=== PATIENT | female | born 2000 | race Caucasian/White ===

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

== ENCOUNTER 2022-04-22 16:26 | Emergency (ER) | payer OTHER ==
--- OUTSIDE RECORDS SUMMARY | 2022-04-22 16:35 | XMS REPORT | Continuity of Care Document ---
:2000 Author Organization [facility] [place] [facility] t Address [address] [place] [address] [address]. Le[address] [place] [address] Care Team Providers Name Role Phone STUART AMOR Primary Care Physician Unavailable TR EATON Attending Clinician Unavailable Angelito Tr FITZGERALD Attending Clinician [phone] INDUCTION, MARGOT Attending Clinician Unavailable Tanvir Wynne MD Attending Clinician Carol Sarmiento MD Attending Clinician [phone] Lyndon Jaramillo MD Attending Clinician STUART AMOR Attending Clinician Unavailable TANVIR WYNNE Attending Clinician Unavailable Doctor Unassigned, [place] Attending Clinician Unavailable Ultrasound, Dixon-Ghassan Attending Clinician Unavailable Deanne Guerrero MD Attending Clinician [phone] DEANNE GUERRERO Attending Clinician Unavailable LIZZIE RAMEY Attending Clinician Unavailable CLEO PRICE Attending Clinician Unavailable SANDRITA MEDINA Attending Clinician Unavailable Provider, Emre Doss Attending Clinician Unavailable Sandrita Ring Attending Clinician Visit, Emre Nurse Attending Clinician Unavailable Stuart Carrillo Attending Clinician LISANDRO BROOKS Attending Clinician Unavailable LISANDRO BROOKS Attending Clinician Unavailable Dwain HARPER, Lisandro Attending Clinician Marko Harrison DO Attending Clinician BRENDAN BERRY Attending Clinician Unavailable Brendan Berry MD Attending Clinician Nasim Medrano MD Attending Clinician NASIM MEDRANO Attending Clinician Unavailable NASIM MEDRANO Attending Clinician Unavailable Sergio Vivar MD Attending Clinician Tom [facility], [place] Attending Clinician Unavailable ABAD MATOS S Attending Clinician Unavailable Phil PEREA Abad S Attending Clinician Anika Alegria RN Attending Clinician Unavailable Dionicio, Dixon Enriquezchpeña m Attending Clinician Unavailable ADITI BARBOZA Attending Clinician Unavailable Melissa DIGGSP, Patience Padilla Attending Clinician [phone] Cleo Price CNM Attending Clinician Alice, [facility] Attending Clinician Unavailable Aditi Casillas Attending Clinician BELLA DELVALLE Attending Clinician Unavailable Bella Delvalle MD Attending Clinician Jonathan Vazquez MD Attending Clinician NICOLETTE OSORIO Attending Clinician Unavailable Nicolette Osorio MD Attending Clinician [phone] Chloe Power MD Attending Clinician CHLOE POWER Attending Clinician Unavailable Tammie Ervin RN Attending Clinician Unavailable LISANDRO BROOKS Admitting Clinician Unavailable NICOLETTE OSORIO Admitting Clinician Unavailable CHLOE POWER Admitting Clinician Unavailable Tanvir Wynne MD Admitting Clinician TANVIR WYNNE Admitting Clinician Unavailable Lisandro Brooks MD Admitting Clinician Jonathan Vazquez MD Admitting Clinician Nicolette Osorio MD Admitting Clinician [phone] Chloe Power MD Admitting Clinician Payers Payer Name Policy Type Policy Number Effective Date Expiration Date Vanessa boone [facility] [id number] 2019 CHOICE [place] STAR 00:00:00 Problems Condition Condition Condition Status Onset Resolution Last Treating Co mments Source Name Details Category Date Date Treatment Clinician Date Disease Active 2021-04 U nivers care and care and 2-16 ity of examin[place] examin[place] n of n of 00 Medical lactating lactating Bran ch mother mother 37 weeks 37 weeks Disease Active 2021-04 Unive rs gestation gestation 1-22 ity of of of 00:00: [place] 00 [facility] Normal Normal Disease Active 2021-04 Univers labor labor 1-22 ity of 00:00: [address] Full-term Full-term Disease Active 2021-04 Uni vers premature premature 1-22 it[place] of rupture of rupture of 00:[place] membranes membranes 00 [facility] with onset with onset Br anch of labor of labor within 24 within 24 hours of hours of rupture rupture Liveborn Liveborn Disease Active 2021-04 Unive rs , of infant, of 1-22 it y of [place] , , 00 [place]ical born in born in [facility] hospital by vaginal by vaginal delivery delivery Anemia of Anemia of Disease Active 2021-04 Uni vers mother in mother in 1-21 ity of , , 00:[place] antepartum antepartum 00 Me dical Branch 28 weeks 28 weeks Disease Active Unive rs gestation gestation 9-21 ity of of of 00:00: [place] [address] [facility] Subchorion Subchorion Disease Active U nivers ic ic 4-28 ity of hematoma hematoma 00:00: [place] in first in first 00 Medica l trimester, trimester, Br anch single or single or unspecifie unspecifie d fetus d fetus Vaginal Vaginal Disease Active Univers bleeding bleeding 4-18 ity of during during 00:00: [place] , , 00 Me dical antepartum antepartum Br anch History of History of Disease Active U nivers 4-12 ity of delivery delivery 00:00: [place] 00 Medical Branch History of History of Disease Active U nivers of of 4-12 ity of child child 00:00: [place] after after 00 Medical Branch period period Multiparit Multiparit Disease Active U nivers y y 4-12 ity of 00:00: [place] 00 Medical Branch Threatened Threatened Disease Active 2020-04 U nivers , , 1-08 ity of antepartum antepartum 00:00: [place] 00 [place] Rh Rh Disease Active 2020-04 Univers negative negative 1-08 ity of state in state in 00:00: [place] antepartum antepartum 00 Me dical period period Branch Breast Breast Disease Active Univers abscess abscess 6-24 ity of 00:00: [place] Medical Branch Nausea and Nausea and Disease Active U nivers vomiting vomiting 1-02 ity of during during 00:00: [place] [address] [facility] Primigravi Primigravi Disease Active 2018-04 U nivers da in da in 2-05 ity of third third 00:00: [place] trimester trimester 00 [facility] Maternal Maternal Disease Active 2018-04 Overview: Un slava varicella, varicella, 1-08 Formattin ity of non-immune non-immune 00:00: g of this [place] 00 note Medical might be Branch different from the original. Address in Postpartu m. High-risk High-risk Disease Active 2018-04 Uni vers 1-07 ity of in third in third 00:00: [place] trimester trimester 00 [facility] High risk High risk Disease Active 2018-04 Uni vers teen teen 1-07 ity of 00:[place] in first in first 00 Medica l trimester trimester Bran ch Allergies, Adverse Reactions, Alerts Allergy Allergy Status Severity Reaction(s) Onset Inactive Treating Comm ents Source Name Type Date Date Clinician HYDROXYP DRUG Active Low ITCHING 2021-04 Univers ROGESTER 0-13 ity of ONE 00:00: [place] CAP(PPRE 00 Medical S) Branch Hydroxyp Propensi Active Itching 2021-04 Reports Univ ers rogester ty to 0-13 itching ity of one adverse 00:00: and [place] Cap(Ppre reaction 00 discomfor Med ical s) s t at site Branch of injection . Occurs immediate ly after injection is ongoing for several days Codeine Propensi Active Nausea 2020-04 Univers ty to and/or 08 ity of adverse Vomiting 00:00: [place] reaction 00 Medical s Branch CODEINE DRUG Active N/V 2020-04 Univers INGREDI 1-08 ity of 00:00: [place] [facility] Social History Social Habit Start Date Stop Date Quantity Comments Source ASSERTION 2021-07-16 University of 00:00:00 [place] Medical [facility] History [facility] o f Alcohol Comment [place] Med ical Branch History [facility] o f Alcohol Std [place] Medical Drinks Branch History [facility] o f Alcohol Binge [place] Medic al Branch Exposure to 2022-04-01 2022-04-11 Not sure University SARS-CoV-2 00:00:00 14:22:00 [facility] (event) Branch Alcohol intake 2022-04-11 2022-04-11 Lifetime University of 00:00:00 00:00:00 non-drinker [facility] (finding) [place] Tobacco use and 2021-11-08 2021-11-08 Smokeless tobacco Un iversity of exposure 00:00:00 00:00:00 non-user [facility] History SDOH 2019-03-03 2019-03-03 1 University o f Alcohol Frequency 00:00:00 [facility] [place] Sex Assigned At [birth year] Universit y of 00:00:00 00:00:00 [facility] Smoking Status Start Date Stop Date Source Never smoked tobacco [facility] Medications Ordered Filled Start Stop Current Ordering Indication Dosage Frequency Signature Comments Components Source Medication Medication Date Date Medication? Clinician (SIG) Name Name jomar Wood 2021-04 Yes Topical, Un slava (TUCKS) 50 1-23 Q4HPRN, ity of % topical 01:12: [place] pad 11 on [facility] 03/18/22 Branch at 1912, Until Discontinu ed, Routine, rectal/hem orrhoidal pain ibuprofen 2021-04 Yes 600mg 600 mg, Univ ers (IBU) 1- Oral, ity of tablet 600 01:12: Q6HPRN, [place] mg 11 Starting Medical on [facility] Branch 03/18/22 at 1912, Until Discontinu ed, Routine, Pain (scale 4-6) acetaminoph 2022-1 Yes 650mg 650 mg, Un slava en 05-19 Oral, ity of (TYLENOL) 01:12: Q6HPRN, [place] tablet 650 11 Starting Medic al mg on Thu03/18/22 at 1911, Until Discontinu ed, Routine, Pain (scale 1-3) diphenhydrA 2021-04 Yes 25mg 25 mg, Univ ers MINE 05-19 Oral, ity of (BENADRYL) 01:12: Q6HPRN, [place] tablet 25 11 Starting Medica l mg on Thu03/18/22 at 1911, Until Discontinu ed, Routine, Sleep, Itching ondansetron 2021-04 Yes 4mg 4 mg, Slow Univers (ZOFRAN 05-19 IV Push, ity of (PF)) 01:12: Q8HPRN, [place] injection 4 11 Starting Medi roberto mg on 03/18/22 at 1911, Until Discontinu ed, Routine, Nausea and Vomiting (N/V) simethicone 2021-04 Yes 160mg 160 mg, [place] (GAS RELIEF 05-19 Oral, ity of (SIMETHICON 01:12: PC+HSPRN, [place] E)) 11 Starting Medical chewable on Thu tablet 160 03/18/22 mg at 1911, Until Discontinu ed, Routine, Gas docusate 2021-04 Yes 200mg 200 mg, Unive rs (COLACE) 05-19 Oral, ity of capsule 200 01:12: QDAILYPRN, [place] mg 11 Starting Medical on [facility] Branch 03/18/22 at 1911, Until Discontinu ed, Routine, Constipati on magnesium 2021-04 Yes 30mL 30 mL, Univer s hydroxide 05-19 Oral, ity of (MILK OF 01:12: QDAILYPRN, [place] MAGNESIA) 11 Starting Medica l 400 mg/5 mL on Thu suspension 03/18/22 30 mL at 1911, Until Discontinu ed, Routine, Constipati on benzocaine- 2021-04 Yes Topical, [place] menthol 05-19 PRN, ity of (DERMOPLAST 01:12: Starting [place] ) 20-0.5 % 11 on [facility] Medical topical 03/18/22 Branch spray at 1912, Until Discontinu ed, Routine, Perineum discomfort ondansetron 2021-04- No 4mg 4 mg, Slow Univers (ZOFRAN 05-18 IV Push, ity of (PF)) 19:35: 01:12 Q6HPRN, [place] injection 4 00 :15 Nausea and Me dical mg Vomiting Branch (N/V), Starting on Thu03/18/22 at 1335
Do ses of ondansetro n 16 mg and above need to be administer ed via IV piggyback. For Dose >=24mg ECG monitoring is advisable.
oxytocin 2021-04- No 2mU/min at 2-40 Un slava (PITOCIN) 05-18 11-23 mL/hr, IV ity of 30 units in 14:20: 01:12 Infusion, [place] NS 500 mL 28 :15 TITRATE, Medica l IV infusion Starting Bran ch on Thu03/18/22 at 0820, Until Thu03/18/22 at 1912, PERFECTO lactated 2021-04- No 500mL at 999 Unive rs ringers IV 05-18 11-22 mL/hr, 500 it y of infusion 14:15: 13:27 mL, IV [place] 500 mL 00 :00 Infusion, Medical ONCE, 1 Branch dose, On Thu03/18/22 at 0815, Routine fentaNYL-ro 2021-04- No Epidural, Univers pivacaine 2 05-18 ONCE INTRA i ty of mcg/mL-0.1 14:00: 01:59 PROCEDURE, [place] % (PF) in 00 :15 Starting Medica l NS 200 mL on Tue Branch epidural 03/18/22 infusion at 0800, RTU Until Thu03/18/22 at 1959, Routine, Intra-op fentaNYL-ro 2021-04- No Epidural, Univers pivacaine 2 05-18 ONCE INTRA i ty of mcg/mL-0.1 14:00: 01:59 PROCEDURE, [place] % (PF) in 00 :15 Starting Medica l NS 200 mL on Tue Branch epidural 03/18/22 infusion at 0800, RTU Until Thu03/18/22 at 1959, Routine, Intra-op lidocaine-e 2021-04- No Intraderma Univers pinephrine 05-18 11-23 l, ONCE ity o f (XYLOCAINE 13:55: 01:59 INTRA [place] W/EPINEPHRI 00 :15 PROCEDURE, Me dical NE) 1.5 Starting Branch %-1:200,000 on Tue injection 03/18/22 at 0755, Until Thu03/18/22 at 1959, Routine, Intra-op lidocaine-e 2021-04- No Intraderma Univers pinephrine 05-1823 l, ONCE ity o f (XYLOCAINE 13:55: 01:59 INTRA [place] W/EPINEPHRI 00 :15 PROCEDURE, Me dical NE) 1.5 Starting Branch %-1:200,000 on Tue injection 03/18/22 at 0755, Until Thu03/18/22 at 1959, Routine, Intra-op D5W-LR IV 2021-04- No 1000mL at 1-125 U nivers infusion 05-18 11-23 mL/hr, IV ity o f 1,000 mL 13:19: 01:12 Infusion, [place] as 18 :15 TITRATE, Medical Starting Branch on Thu03/18/22 at 0719, Until Thu03/18/22 at 1912, Routine 2021-04 Yes [id number] 1{tbl} Take 1 U nivers vitamin 1-22 tablet by ity of w/FA tablet 00:00: mouth in [place] 00 the Medical morning. Branch docusate 2021-04 Yes [id number] 200mg Take 2 Un slava 100 mg 1-22 capsules ity of capsule 00:00: by mouth [place] 00 once daily Medical as needed Branch for Constipati on. ferrous 2021-04 Yes [id number] 325mg Take 1 Uni vers sulfate 325 1-22 tablet by ity of mg (65 mg 00:00: [place] iron) 00 the Medical tablet morning Branch and 1 tablet in the evening. ibuprofen 2021-04 Yes [id number] 600mg Take 1 U nivers 600 mg 1-22 tablet by ity of tablet 00:00: mouth [place] 00 every 6 Medical (six) Branch hours as needed (Pain). Take with food or milk. 2021-04 Yes [id number] 1{tbl} Take 1 U nivers vitamin 1-22 tablet by ity of w/FA tablet 00:00: mouth in [place] 00 the Medical morning. Branch docusate 2021-04 Yes [id number] 200mg Take 2 Un slava 100 mg 1-22 capsules ity of capsule 00:00: by mouth [place] 00 once daily Medical as needed Branch for Constipati on. ferrous 2021-04 Yes [id number] 325mg Take 1 Uni vers sulfate 325 1-22 tablet by ity of mg (65 mg 00:00: [place] iron) 00 the Medical tablet morning Branch and 1 tablet in the evening. ibuprofen 2021-04 Yes [id number] 600mg Take 1 U nivers 600 mg 1-22 tablet by ity of tablet 00:00: mouth [place] 00 every 6 Medical (six) Branch hours as needed (Pain). Take with food or milk. ascorbic 2021-04 Yes [id number] 500mg Take 1 U nivers acid, 1-21 tablet by ity of vitamin C, 00:00: mouth in [place] 500 mg 00 the Medical tablet morning Branch and 1 tablet at noon and 1 tablet in the evening. ferrous 2021-04 Yes [id number] 325mg Take 1 Un sl[place] sulfate 325 1-21 tablet by ity of mg (65 mg 00:00: [place] iron) 00 the Medical tablet morning Branch and 1 tablet in the evening. ascorbic 2021-04 Yes [id number] 500mg Take 1 U nivers acid, 1-21 tablet by ity of vitamin C, 00:00: mouth in [place] 500 mg 00 the Medical tablet morning Branch and 1 tablet at noon and 1 tablet in the evening. ferrous 2021-04 Yes [id number] 325mg Take 1 [place] sulfate 325 1-21 tablet by ity of mg (65 mg 00:00: [place] iron) 00 the Medical tablet morning Branch and 1 tablet in the evening. ascorbic 2021-04 Yes [id number] 500mg Take 1 U nivers acid, 1-21 tablet by ity of vitamin C, 00:00: mouth in [place] 500 mg 00 the Medical tablet morning Branch and 1 tablet at noon and 1 tablet in the evening. ferrous 2021-04 Yes [id number] 325mg Take 1 Un sl[place] sulfate 325 1-21 tablet by ity of mg (65 mg 00:00: [place] iron) 00 the Medical tablet morning Branch and 1 tablet in the evening. ascorbic 2021-04 Yes [id number] 500mg Take 1 U nivers acid, 1-21 tablet by ity of vitamin C, 00:00: mouth in [place] 500 mg 00 the Medical tablet morning Branch and 1 tablet at noon and 1 tablet in the evening. ferrous 2021-04 Yes [id number] 325mg Take 1 [place] sulfate 325 1-21 tablet by ity of mg (65 mg 00:00: [place] iron) 00 the Medical tablet morning Branch and 1 tablet in the evening. ascorbic 2021-04 Yes [id number] 500mg Take 1 U nivers acid, 1-21 tablet by ity of vitamin C, 00:00: mouth in [place] 500 mg 00 the Medical tablet morning Branch and 1 tablet at noon and 1 tablet in the evening. ascorbic 2021-04 Yes [id number] 500mg Take 1 U nivers acid, 1-21 tablet by ity of vitamin C, 00:00: mouth in [place] 500 mg 00 the Medical tablet morning Branch and 1 tablet at noon and 1 tablet in the evening. ascorbic 2021-04 Yes [id number] 500mg Take 1 U nivers acid, 1-21 tablet by ity of vitamin C, 00:00: mouth in [place] 500 mg 00 the Medical tablet morning Branch and 1 tablet at noon and 1 tablet in the evening. ascorbic 2021-04 Yes [id number] 500mg Take 1 U nivers acid, 1-21 tablet by ity of vitamin C, 00:00: mouth in [place] 500 mg 00 the Medical tablet morning Branch and 1 tablet at noon and 1 tablet in the evening. ferrous 2021-04- No [id number] 325mg Take 1 U nivers sulfate 325 1-21 11-22 tablet by it y of mg (65 mg 00:00: 00:00 mouth in [place] iron) 00 :00 the Medical tablet morning Branch and 1 tablet in the evening. ferrous 2021-04- No [id number] 325mg Take 1 U nivers sulfate 325 1-21 11-22 tablet by it y of mg (65 mg 00:00: 00:00 mouth in [place] iron) 00 :00 the Medical tablet morning Branch and 1 tablet in the evening. ferrous 2021-04- No [id number] 325mg Take 1 U nivers sulfate 325 05-17 tablet by it y of mg (65 mg 00:00: 00:00 mouth in [place] iron) 00 :00 the Medical tablet morning Branch and 1 tablet in the evening. hydroxyprog 2021- No [id number] 275mg 275 mg, Univers esterone(PF 01-24 Subcutaneo i ty of ) (LO 14:26: 14:56 us, ONCE, [place] AUTO-INJECT 00 :00 1 dose, On Me dical OR) 275 Fri Branch mg/1.1 mL 01/24/22 at injection 0930, 275 mg Routine hydroxyprog 2021-2021- No [id number] 275mg Univers esterone(PF 01-24 ity of ) (LO 14:26: 14:27 [place] AUTO-INJECT 00 :00 Medical OR) 275 Branch mg/1.1 mL injection 275 mg hydroxyprog 2021- No [id number] 275mg 275 mg, Univers esterone(PF 01-24 Subcutaneo i ty of ) (LO 14:26: 14:27 [place], ONCE, [place] AUTO-INJECT 00 :00 1 dose, On Me dical OR) 275 Fri Branch mg/1.1 mL 01/24/22 at injection 0930, 275 mg Routine acetaminoph 2021- No 1000mg 1,000 mg, Univers en 01-15 Oral, ity of (TYLENOL) 22:49: 22:55 ONCE, 1 [place] tablet 00 :00 dose, On Medical 1,000 mg Wed Branch 01/15/22 at 1800, Routine Nitrofurant 2021- No [id number] 100mg Take 1 Univers oin&Nit. 01-15 capsule by ity of Macrocryst 00:00: 04:59 mouth in [place] 100 mg 00 :00 the Medical capsule morning Branch and 1 capsule in the evening. Do all this for 7 days. Nitrofurant 2021-0 2021- No [id number] 100mg Take 1 Univers oin&Nit. 01-15 capsule by ity of Macrocryst 00:00: 04:59 mouth in [place] 100 mg 00 :00 the Medical capsule morning Branch and 1 capsule in the evening. Do all this for 7 days. hydroxyprog 2022-0 Yes [id number] 275mg inject 1.1 Univers esterone,PF 8-08 mL under ity of , (LO, 00:00: the skin [place] PF,) 275 00 weekly. Medical mg/1.1 mL Branch injection hydroxyprog 2022-0 Yes [id number] 275mg inject 1.1 Univers esterone,PF 8-08 mL under ity of , (LO, 00:00: the skin [place] PF,) 275 00 weekly. Medical mg/1.1 mL Branch injection hydroxyprog 2022-0 Yes [id number] 275mg inject 1.1 Univers esterone,PF 8-08 mL under ity of , (LO, 00:00: the skin [place] PF,) 275 00 weekly. Medical mg/1.1 mL Branch injection hydroxyprog 2022-0 Yes [id number] 275mg inject 1.1 Univers esterone,PF 8-08 mL under ity of , (LO, 00:00: the skin [place] PF,) 275 00 weekly. Medical mg/1.1 mL Branch injection hydroxyprog 2022-0 Yes [id number] 275mg inject 1.1 Univers esterone,PF 8-08 mL under ity of , (LO, 00:00: the skin [place] PF,) 275 00 weekly. Medical mg/1.1 mL Branch injection hydroxyprog 2022-0 Yes [id number] 275mg inject 1.1 Univers esterone,PF 8-08 mL under ity of , (LO, 00:00: the skin [place] PF,) 275 00 weekly. Medical mg/1.1 mL Branch injection hydroxyprog 2022-0 Yes [id number] 275mg inject 1.1 Univers esterone,PF 8-08 mL under ity of , (LO, 00:00: the skin [place] PF,) 275 00 weekly. Medical mg/1.1 mL Branch injection hydroxyprog 2022-0 Yes [id number] 275mg inject 1.1 Univers esterone,PF 8-08 mL under ity of , (LO, 00:00: the skin [place] PF,) 275 00 weekly. Medical mg/1.1 mL Branch injection hydroxyprog 2022-0 Yes [id number] 275mg inject 1.1 Univers esterone,PF 8-08 mL under ity of , (OL, 00:00: the skin [place] PF,) 275 00 weekly. Medical mg/1.1 mL Branch injection hydroxyprog 2022-0 Yes [id number] 275mg inject 1.1 Univers esterone,PF 8-08 mL under ity of , (LO, 00:00: the skin [place] PF,) 275 00 weekly. Medical mg/1.1 mL Branch injection hydroxyprog 2022-0 Yes [id number] 275mg inject 1.1 Univers esterone,PF 8-08 mL under ity of , (LO, 00:00: the skin [place] PF,) 275 00 weekly. Medical mg/1.1 mL Branch injection hydroxyprog 2022-0 Yes [id number] 275mg inject 1.1 Univers esterone,PF 8-08 mL under ity of , (LO, 00:00: the skin [place] PF,) 275 00 weekly. Medical mg/1.1 mL Branch injection hydroxyprog 2022-0 Yes [id number] 275mg inject 1.1 Univers esterone,PF 8-08 mL under ity of , (LO, 00:00: the skin [place] PF,) 275 00 weekly. Medical mg/1.1 mL Branch injection hydroxyprog 2022-0 Yes [id number] 275mg inject 1.1 Univers esterone,PF 8-08 mL under ity of , (LO, 00:00: the skin [place] PF,) 275 00 weekly. Medical mg/1.1 mL Branch injection hydroxyprog 2022-0 Yes [id number] 275mg inject 1.1 Univers esterone,PF 8-08 mL under ity of , (LO, 00:00: the skin [place] PF,) 275 00 weekly. Medical mg/1.1 mL Branch injection hydroxyprog 2022-0 Yes [id number] 275mg inject 1.1 Univers esterone,PF 8-08 mL under ity of , (LO, 00:00: the skin [place] PF,) 275 00 weekly. Medical mg/1.1 mL Branch injection hydroxyprog 2022-0 2022- No [id number] 275mg inject 1.1 Univers esterone,PF 8-08 11-22 mL under ity of , (LO, 00:00: 00:00 [place] PF,) 275 00 :00 weekly. Medical mg/1.1 mL Branch injection hydroxyprog 2022-0 2022- No [id number] 275mg inject 1.1 Univers esterone,PF 12-02 11-22 mL under ity of , (LO, 00:00: 00:00 the skin [place] PF,) 275 00 :00 weekly. Medical mg/1.1 mL Branch injection hydroxyprog 2022-0 2022- No [id number] 275mg inject 1.1 Univers esterone,PF 12-02- mL under ity of , (LO, 00:00: 00:00 the skin [place] PF,) 275 00 :00 weekly. Medical mg/1.1 mL Branch injection hydroxyprog 2022-0 2022- No [id number] 275mg 275 mg, Univers esterone(PF 11-01 Subcutaneo i ty of ) (LO 18:14: 14:59 us, [place] AUTO-INJECT 13 :22 QWEEKLY, Medi roberto OR) 275 20 doses, Branch mg/1.1 mL First dose injection on Thu 275 mg 11/01/21 at 1330, Last dose on Thu03/14/22 at 1330, Routine proMETHazin 2-0 Yes [id number] 25mg Take 1 Univers e 25 mg 6-11 tablet by ity of tablet 00:00: mouth [place] 00 every 6 Medical (six) Branch hours as needed for Nausea and Vomiting (N/V). proMETHazin 2022-0 Yes [id number] 25mg Take 1 Univers e 25 mg 6-11 tablet by ity of tablet 00:00: mouth [place] 00 every 6 Medical (six) Branch hours as needed for Nausea and Vomiting (N/V). proMETHazin 2022-0 Yes [id number] 25mg Take 1 Univers e 25 mg 6-11 tablet by ity of tablet 00:00: mouth [place] 00 every 6 Medical (six) Branch hours as needed for Nausea and Vomiting (N/V). proMETHazin 2022-0 Yes [id number] 25mg Take 1 Univers e 25 mg 6-11 tablet by ity of tablet 00:00: mouth [place] 00 every 6 Medical (six) Branch hours as needed for Nausea and Vomiting (N/V). proMETHazin 2022-0 Yes [id number] 25mg Take 1 Univers e 25 mg 6-11 tablet by ity of tablet 00:00: mouth [place] 00 every 6 Medical (six) Branch hours as needed for Nausea and Vomiting (N/V). proMETHazin 2021-0 Yes [id number] 25mg Take 1 Univers e 25 mg 6-11 tablet by ity of tablet 00:00: mouth [place] 00 every 6 Medical (six) Branch hours as needed for Nausea and Vomiting (N/V). proMETHazin 2021-0 Yes [id number] 25mg Take 1 Univers e 25 mg 6-11 tablet by ity of tablet 00:00: mouth [place] 00 every 6 Medical (six) Branch hours as needed for Nausea and Vomiting (N/V). proMETHazin 2021-0 Yes [id number] 25mg Take 1 Univers e 25 mg 6-11 tablet by ity of tablet 00:00: mouth [place] 00 every 6 Medical (six) Branch hours as needed for Nausea and Vomiting (N/V). proMETHazin 2021-0 Yes [id number] 25mg Take 1 Univers e 25 mg 6-11 tablet by ity of tablet 00:00: mouth [place] 00 every 6 Medical (six) Branch hours as needed for Nausea and Vomiting (N/V). proMETHazin 2021-0 Yes [id number] 25mg Take 1 Univers e 25 mg 6-11 tablet by ity of tablet 00:00: mouth [place] 00 every 6 Medical (six) Branch hours as needed for Nausea and Vomiting (N/V). proMETHazin 2021-0 Yes [id number] 25mg Take 1 [facility] 25 mg 6-11 tablet by [facility] tablet 00:00: mouth [place] 00 every 6 Medical (six) Branch hours as needed for Nausea and Vomiting (N/V). proMETHazin 2021-0 Yes [id number] 25mg Take 1 [facility] 25 mg 6-11 tablet by [facility] of tablet 00:00: mouth [place] 00 every 6 Medical (six) Branch hours as needed for Nausea and Vomiting (N/V). proMETHazin 2-0 Yes [id number] 25mg Take 1 [facility] 25 mg 6-11 tablet by [facility] of tablet 00:00: mouth [place] 00 every 6 Medical (six) Branch hours as needed for Nausea and Vomiting (N/V). proMETHazin 2021-0 Yes [id number] 25mg Take 1 [facility] 25 mg 6-11 tablet by [facility] of tablet 00:00: mouth [place] 00 every 6 Medical (six) Branch hours as needed for Nausea and Vomiting (N/V). proMETHazin Yes [id number] 25mg Take 1 [facility] 25 mg 6-11 tablet by [facility]y of tablet 00:00: mouth [place] 00 every 6 Medical (six) Branch hours as needed for Nausea and Vomiting (N/V). proMETHazin Yes [id number] 25mg Take 1 [facility] 25 mg 6-11 tablet by [facility] of tablet 00:00: mouth [place] 00 every 6 Medical (six) Branch hours as needed for Nausea and Vomiting (N/V). proMETHazin 2021- No [id number] 25mg Take 1 [facility] 25 mg 6-11 11-22 tablet by ity of tablet 00:00: 00:00 mouth [place] 00 :00 every 6 Medical (six) Branch hours as needed for Nausea and Vomiting (N/V). proMETHazin 2021- No [id number] 25mg Take 1 [facility] 25 mg 6-11 11-22 tablet by it[facility] of tablet 00:00: 00:00 mouth [place] 00 :00 every 6 Medical (six) Branch hours as needed for Nausea and Vomiting (N/V). proMETHazin 2021- No [id number] 25mg Take 1 [facility] 25 mg 6-11 11-22 tablet by [facility] of tablet 00:00: 00:00 mouth [place] 00 :00 every 6 Medical (six) Branch hours as needed for Nausea and Vomiting (N/V). vitamin B-6 Yes [id number] 25mg Take 1 [facility] 25 mg 4-25 tablet by [facility] of tablet 00:00: mouth [place] 00 every 6 Medical (six) Branch hours as needed for Nausea and Vomiting (N/V). vitamin B-6 Yes [id number] 25mg Take 1 [facility] 25 mg 4-25 tablet by [facility] of tablet 00:00: mouth [place] 00 every 6 Medical (six) Branch hours as needed for Nausea and Vomiting (N/V). vitamin B-6 Yes [id number] 25mg Take 1 [facility] 25 mg 4-25 tablet by [facility] of tablet 00:00: mouth [place] 00 every 6 Medical (six) Branch hours as needed for Nausea and Vomiting (N/V). vitamin B-6 Yes [id number] 25mg Take 1 [facility] 25 mg 4-25 tablet by [facility] of tablet 00:00: mouth [place] 00 every 6 Medical (six) Branch hours as needed for Nausea and Vomiting (N/V). vitamin B-6 Yes [id number] 25mg Take 1 [facility] 25 mg 4-25 tablet by [facility] of tablet 00:00: mouth [place] 00 every 6 Medical (six) Branch hours as needed for Nausea and Vomiting (N/V). vitamin B-6 Yes [id number] 25mg Take 1 [facility] 25 mg 4-25 tablet by [facility] of tablet 00:00: mouth [place] 00 every 6 Medical (six) Branch hours as needed for Nausea and Vomiting (N/V). vitamin B-6 Yes [id number] 25mg Take 1 [facility] 25 mg 4-25 tablet by [facility] of tablet 00:00: mouth [place] 00 every 6 Medical (six) Branch hours as needed for Nausea and Vomiting (N/V). vitamin B-6 Yes [id number] 25mg Take 1 [facility] 25 mg 4-25 tablet by [facility] of tablet 00:00: mouth [place] 00 every 6 Medical (six) Branch hours as needed for Nausea and Vomiting (N/V). vitamin B-6 Yes [id number] 25mg Take 1 [facility] 25 mg 4-25 tablet by [facility] of tablet 00:00: mouth [place] 00 every 6 Medical (six) Branch hours as needed for Nausea and Vomiting (N/V). vitamin B-6 Yes [id number] 25mg Take 1 [facility] 25 mg 4-25 tablet by [facility] of tablet 00:00: mouth [place] 00 every 6 Medical (six) Branch hours as needed for Nausea and Vomiting (N/V). vitamin B-6 0 Yes [id number] 25mg Take 1 [facility] 25 mg 4-25 tablet by it[facility] of tablet 00:00: mouth [place] 00 every 6 Medical (six) Branch hours as needed for Nausea and Vomiting (N/V). vitamin B-6 0 Yes [id number] 25mg Take 1 [facility] 25 mg 4-25 tablet by [facility] of tablet 00:00: mouth [place] 00 every 6 Medical (six) Branch hours as needed for Nausea and Vomiting (N/V). vitamin B-6 Yes [id number] 25mg Take 1 [facility] 25 mg 4-25 tablet by [facility] of tablet 00:00: mouth [place] 00 every 6 Medical (six) Branch hours as needed for Nausea and Vomiting (N/V). vitamin B-6 Yes [id number] 25mg Take 1 [facility] 25 mg 4-25 tablet by [facility] of tablet 00:00: mouth [place] 00 every 6 Medical (six) Branch hours as needed for Nausea and Vomiting (N/V). vitamin B-6 Yes [id number] 25mg Take 1 [facility] 25 mg 4-25 tablet by [facility] of tablet 00:00: mouth [place] 00 every 6 Medical (six) Branch hours as needed for Nausea and Vomiting (N/V). vitamin B-6 Yes [id number] 25mg Take 1 [facility] 25 mg 4-25 tablet by [facility] of tablet 00:00: mouth [place] 00 every 6 Medical (six) Branch hours as needed for Nausea and Vomiting (N/V). vitamin B-6 2021- No [id number] 25mg Take 1 [facility] 25 mg 4-25 11-22 tablet by it[facility] of tablet 00:00: 00:00 mouth [place] 00 :00 every 6 Medical (six) Branch hours as needed for Nausea and Vomiting (N/V). vitamin B-6 2021- No [id number] 25mg Take 1 [facility] 25 mg 4-25 11-22 tablet by it[facility] of tablet 00:00: 00:00 mouth [place] 00 :00 every 6 Medical (six) Branch hours as needed for Nausea and Vomiting (N/V). vitamin B-6 2021- No [id number] 25mg Take 1 [facility] 25 mg 4-25 11-22 tablet by [facility] of tablet 00:00: 00:00 mouth [place] 00 :00 every 6 Medical (six) Branch hours as needed for Nausea and Vomiting (N/V). Yes [id number] 1{packe Take 1 [facility] vit 4-12 t} Packet by ity of 33-iron-fol 00:00: mouth [place] ic-dha 00 daily. Medical ([facility] Branch + DHA) 29 mg iron-1 mg -250 mg combo pack Yes [id number] 1{packe Take 1 [facility] vit 4-12 t} Packet by ity of 33-iron-fol 00:00: mouth [place] ic-dha 00 daily. Medical ([facility] + DHA) 29 mg iron-1 mg -250 mg combo pack Yes [id number] 1{packe Take 1 [facility] vit 4-12 t} Packet by ity of 33-iron-fol 00:00: mouth [place] ic-dha 00 daily. Medical ([facility] + DHA) 29 mg iron-1 mg -250 mg combo pack Yes [id number] 1{packe Take 1 [facility] vit 4-12 t} Packet by ity of 33-iron-fol 00:00: mouth [place] ic-dha 00 daily. Medical ([facility] + DHA) 29 mg iron-1 mg -250 mg combo pack Yes [id number] 1{packe Take 1 [facility] vit 4-12 t} Packet by ity of 33-iron-fol 00:00: mouth [place] ic-dha 00 daily. Medical ([facility] + DHA) 29 mg iron-1 mg -250 mg combo pack Yes [id number] 1{packe Take 1 [facility] vit 4-12 t} Packet by ity of 33-iron-fol 00:00: mouth [place] ic-dha 00 daily. Medical ([facility] + DHA) 29 mg iron-1 mg -250 mg combo pack Yes [id number] 1{packe Take 1 [facility] vit 4-12 t} Packet by ity of 33-iron-fol 00:00: mouth [place] ic-dha 00 daily. Medical ([facility] + DHA) 29 mg iron-1 mg -250 mg combo pack Yes [id number] 1{packe Take 1 [facility] vit 4-12 t} Packet by ity of 33-iron-fol 00:00: mouth [place] ic-dha 00 daily. Medical ([facility] + DHA) 29 mg iron-1 mg -250 mg combo pack Yes [id number] 1{packe Take 1 [facility] vit 4-12 t} Packet by ity of 33-iron-fol 00:00: mouth [place] ic-dha 00 daily. Medical ([facility] + DHA) 29 mg iron-1 mg -250 mg combo pack 0 Yes [id number] 1{packe Take 1 [facility] vit 4-12 t} Packet by ity of 33-iron-fol 00:00: mouth [place] ic-dha 00 daily. Medical ([facility] + DHA) 29 mg iron-1 mg -250 mg combo pack 0 Yes [id number] 1{packe Take 1 [facility] vit 4-12 t} Packet by ity of 33-iron-fol 00:00: mouth [place] ic-dha 00 daily. Medical ([facility] Branch + DHA) 29 mg iron-1 mg -250 mg combo pack 0 Yes [id number] 1{packe Take 1 [facility] vit 4-12 t} Packet by ity of 33-iron-fol 00:00: mouth [place] ic-dha 00 daily. Medical ([facility] Branch + DHA) 29 mg iron-1 mg -250 mg combo pack 0 Yes [id number] 1{packe Take 1 [facility] vit 4-12 t} Packet by ity of 33-iron-fol 00:00: mouth [place] ic-dha 00 daily. Medical ([facility] Branch + DHA) 29 mg iron-1 mg -250 mg combo pack 0 Yes [id number] 1{packe Take 1 [facility] vit 4-12 t} Packet by ity of 33-iron-fol 00:00: mouth [place] ic-dha 00 daily. Medical ([facility] Branch + DHA) 29 mg iron-1 mg -250 mg combo pack 0 Yes [id number] 1{packe Take 1 [facility] vit 4-12 t} Packet by ity of 33-iron-fol 00:00: mouth [place] ic-dha 00 daily. Medical ([facility] Branch + DHA) 29 mg iron-1 mg -250 mg combo pack 0 Yes [id number] 1{packe Take 1 [facility] vit 4-12 t} Packet by ity of 33-iron-fol 00:00: mouth [place] ic-dha 00 daily. Medical (SELECT[facility] Branch + DHA) 29 mg iron-1 mg -250 mg combo pack 0 2022- No [id number] 1{packe Take 1 [facility] vit 4-12 11-22 t} Packet by ity of 33-iron-fol 00:00: 00:00 [place] [facility] [place] :00 daily. Medical ([facility] Branch + DHA) 29 mg iron-1 mg -250 mg combo pack 2021- No [id number] 1{packe Take 1 [facility] vit 4-12 11-22 t} Packet by ity of 33-iron-fol 00:00: 00:00 [place] ic-[facility] 00 :00 daily. Medical ([facility] Branch + DHA) 29 mg iron-1 mg -250 mg combo pack 2021- No [id number] 1{packe Take 1 [facility] vit 4-12 11-22 t} Packet by ity of 33-iron-fol 00:00: 00:00 [place] ic-d[facility] 00 :00 daily. Medical ([facility] Branch + DHA) 29 mg iron-1 mg -250 mg combo pack Immunizations Ordered Immunization Filled Immunization Date Status Commen ts Source Name Name Rho (d) Immune 2022-03-19 Completed [facility] Globulin 00:00:00 [facility] Rho (d) Immune 2022-03-19 Completed [facility] Globulin 00:00:00 [facility] TDAP 2022-01-23 Completed [facility] of 00:00:00 [facility] Rho (d) Immune 2022-01-23 Completed [facility] Globulin 00:00:00 [facility] TDAP 2022-01-23 Completed [facility] of 00:00:00 [facility] Rho (d) Immune 2022-01-23 Completed [facility] Globulin 00:00:00 [facility] TDAP 2022-01-23 Completed [facility] of 00:00:00 [facility] Rho (d) Immune 2022-01-23 Completed [facility] Globulin 00:00:00 [facility] TDAP 2022-01-23 Completed [facility] of 00:00:00 [facility] Rho (d) Immune 2022-01-23 Completed [facility] Globulin 00:00:00 [facility] TDAP 2022-01-23 Completed [facility] of 00:00:00 [facility] Rho (d) Immune 2022-01-23 Completed [facility] Globulin 00:00:00 [facility] TDAP 2022-01-23 Completed [facility] 00:00:00 [place] [facility] Rho (d) Immune 2022-01-23 [facility] Rho (d) Immune 2022-01-23 Completed [facility] Globulin 00:00:00 [facility] TDAP 2022-01-23 Completed [facility] 00:00:00 [facility] Rho (d) Immune 2022-01-23 Completed [facility] 00:00:00 [facility] Rho (d) Immune 2022-01-23 Completed [facility] 00[facility]00:00 [facility] Rho (d) Immune 2022-01-23 Completed [facility] 00[facility]00:00 [facility] Rho (d) Immune 2022-01-23 Completed [facility] 00[facility]00:00 [facility] Rho (d) Immune 2022-01-23 Completed [facility] 00[facility]00:00 [facility] Rho (d) Immune 2022-01-23 Completed [facility] 00[facility]00:00 [facility] Rho (d) Immune 2022-01-23 Completed [facility] 00[facility]00:00 [facility] Rho (d) Immune 2022-01-23 Completed [facility] Globulin 00:00:00 [facility] Varicella 2019-09-22 Completed University of (varivax)(chicken 00:00:00 [facility] edical pox) Branch Varicella 2019-09-22 Completed University of (varivax)(chicken 00:00:00 [place] [facility] edical pox) Branch Varicella 2019-09-22 Completed University of (varivax)(chicken 00:00:00 [facility] edical pox) Branch Varicella 2019-09-22 Completed [facility] of (varivax)(chicken 00:00:00 [place] [facility] edical pox) Branch Varicella 2019-09-22 Completed [facility] of (varivax)(chicken 00:00:00 [place] [facility] edical pox) Branch Varicella 2019-09-22 Completed [facility] of (varivax)(chicken 00:00:00 [place] [facility] edical pox) Branch Varicella 2019-09-22 Completed [facility] of (varivax)(chicken 00:00:00 [place] [facility] edical pox) Branch Varicella 2019-09-22 Completed [facility] of (varivax)(chicken 00:00:00 [place] [facility] edical pox) Branch Varicella 2019-09-22 Completed [facility] of (varivax)(chicken 00:00:00 [place] [facility] edical pox) Branch Varicella 2019-09-22 Completed [facility] of (varivax)(chicken 00:00:00 [place] [facility] edical pox) Branch Varicella 2019-09-22 Completed [facility] of (varivax)(chicken 00:00:00 [place] [facility] edical pox) Branch Varicella 2019-09-22 Completed [facility] of (varivax)(chicken 00:00:00 [place] [facility] edical pox) Branch Varicella 2019-09-22 Completed [facility] of (varivax)(chicken 00:00:00 [place] [facility] edical pox) Branch Varicella 2019-09-22 Completed [facility] of (varivax)(chicken 00:00:00 [place] [facility] edical pox) Branch Varicella 2019-09-22 Completed [facility] of (varivax)(chicken 00:00:00 [place] [facility] edical pox) Branch Varicella 2019-09-22 Completed [facility] of (varivax)(chicken 00:00:00 [place] [facility] edical pox) Branch Varicella 2019-09-22 Completed [facility] of (varivax)(chicken 00:00:00 [place] [facility] edical pox) Branch Varicella 2019-09-22 Completed [facility] of (varivax)(chicken 00:00:00 [place] [facility] edical pox) Branch Varicella 2019-09-22 Completed [facility] of (varivax)(chicken 00:00:00 [place] [facility] edical pox) Branch Varicella 2019-09-22 Completed [facility] of (varivax)(chicken 00:00:00 [place] [facility] edical pox) Branch Rho (d) Immune 2019-09-21 Completed [facility] Globulin 00:00:00 [facility] Rho (d) Immune 2019-09-21 Completed [facility] Globulin 00:00:00 [place] [facility] Rho (d) Immune 2019-09-21 Completed [facility] Globulin 00:00:00 [facility] Rho (d) Immune 2019-09-21 Completed [facility] of Globulin 00:00:00 [facility] Rho (d) Immune 2019-09-21 Completed [facility] of Globulin 00:00:00 [facility] Rho (d) Immune 2019-09-21 Completed [facility] of Globulin 00:00:00 [facility] Rho (d) Immune 2019-09-21 Completed [facility] Globulin 00:00:00 [facility] Rho (d) Immune 2019-09-21 Completed [facility] of Globulin 00:00:00 [facility] Rho (d) Immune 2019-09-21 Completed [facility] of Globulin 00:00:00 [facility] Rho (d) Immune 2019-09-21 Completed [facility] Globulin 00:00:00 [facility] Rho (d) Immune 2019-09-21 Completed [facility] of Globulin 00:00:00 [facility] Rho (d) Immune 2019-09-21 Completed [facility] Globulin 00:00:00 [facility] Rho (d) Immune 2019-09-21 Completed [facility] of Globulin 00:00:00 [facility] Rho (d) Immune 2019-09-21 Completed [facility] of Globulin 00:00:00 [facility] Rho (d) Immune 2019-09-21 Completed [facility] of Globulin 00:00:00 [facility] Rho (d) Immune 2019-09-21 Completed [facility] of Globulin 00:00:00 [facility] Rho (d) Immune 2019-09-21 Completed [facility] of Globulin 00:00:00 [facility] Rho (d) Immune 2019-09-21 Completed [facility] of Globulin 00:00:00 [facility] Rho (d) Immune 2019-09-21 Completed [facility] of Globulin 00:00:00 [facility] Rho (d) Immune 2019-09-21 Completed [facility] of Globulin 00:00:00 [facility] TDAP (ADACEL) 2019-08-17 Completed University of VACCINE 00:00:00 [facility] Rho (d) Immune 2019-08-17 Completed [facility] of Globulin 00:00:00 [facility] TDAP (ADACEL) 2019-08-17 Completed University of VACCINE 00:00:00 [facility] Rho (d) Immune 2019-08-17 Completed [facility] of Globulin 00:00:00 [facility] TDAP (ADACEL) 2019-08-17 Completed University of VACCINE 00:00:00 [facility] Rho (d) Immune 2019-08-17 Completed [facility] of Globulin 00:00:00 [facility] TDAP (ADACEL) 2019-08-17 Completed University of VACCINE 00:00:00 [facility] Branch Rho (d) Immune 2019-08-17 Completed [facility] of Globulin 00:00:00 [facility] TDAP (ADACEL) 2019-08-17 Completed University of VACCINE 00:00:00 [facility] Rho (d) Immune 2019-08-17 Completed [facility] of Globulin 00:00:00 [facility] Branch TDAP (ADACEL) 2019-08-17 Completed University of VACCINE 00:00:00 [facility] Rho (d) Immune 2019-08-17 Completed [facility] of Globulin 00:00:00 [facility] TDAP (ADACEL) 2019-08-17 Completed University of VACCINE 00:00:00 [facility] Rho (d) Immune 2019-08-17 Completed [facility] of Globulin 00:00:00 [facility] TDAP (ADACEL) 2019-08-17 Completed University of VACCINE 00:00:00 [facility] Rho (d) Immune 2019-08-17 Completed [facility] of Globulin 00:00:00 [facility] TDAP (ADACEL) 2019-08-17 Completed University of VACCINE 00:00:00 [facility] Rho (d) Immune 2019-08-17 Completed [facility] of Globulin 00:00:00 [facility] TDAP (ADACEL) 2019-08-17 Completed University of VACCINE 00:00:00 [facility] Rho (d) Immune 2019-08-17 Completed [facility] of Globulin 00:00:00 [facility] TDAP (ADACEL) 2019-08-17 Completed University of VACCINE 00:00:00 [facility] Rho (d) Immune 2019-08-17 Completed [facility] of Globulin 00:00:00 [facility] TDAP (ADACEL) 2019-08-17 Completed University of VACCINE 00:00:00 [facility] Rho (d) Immune 2019-08-17 Completed [facility] of Globulin 00:00:00 [facility] Branch TDAP (ADACEL) 2019-08-17 Completed University of VACCINE 00:00:00 [facility] Rho (d) Immune 2019-08-17 Completed [facility] of Globulin 00:00:00 [facility] Branch TDAP (ADACEL) 2019-08-17 Completed University of VACCINE 00:00:00 [facility] Rho (d) Immune 2019-08-17 Completed [facility] of Globulin 00:00:00 [facility] TDAP (ADACEL) 2019-08-17 Completed University of VACCINE 00:00:00 [facility] Rho (d) Immune 2019-08-17 Completed [facility] of Globulin 00:00:00 [facility] TDAP (ADACEL) 2019-08-17 Completed University of VACCINE 00:00:00 [facility] Rho (d) Immune 2019-08-17 Completed [facility] of Globulin 00:00:00 [facility] TDAP (ADACEL) 2019-08-17 Completed University of VACCINE 00:00:00 [facility] Rho (d) Immune 2019-08-17 Completed [facility] of Globulin 00:00:00 [facility] TDAP (ADACEL) 2019-08-17 Completed University of VACCINE 00:00:00 [facility] Rho (d) Immune 2019-08-17 Completed [facility] of Globulin 00:00:00 [facility] TDAP (ADACEL) 2019-08-17 Completed University of VACCINE 00:00:00 [facility] Rho (d) Immune 2019-08-17 Completed [facility] of Globulin 00:00:00 [facility] TDAP (ADACEL) 2019-08-17 Completed University of VACCINE 00:00:00 [facility] Rho (d) Immune 2019-08-17 Completed [facility] of Globulin 00:00:00 [facility] Influenza Virus 2019-03-03 Completed Universit y of Vaccine Quad .5 mL 00:00:00 [facility] IM 6+ MO Branch Influenza Virus 2019-03-03 Completed Universit y of Vaccine Quad .5 mL 00:00:00 [place] [facility] IM 6+ MO Branch Influenza Virus 2019-03-03 Completed Universit y of Vaccine Quad .5 mL 00:00:00 [place] [facility] IM 6+ MO Branch Influenza Virus 2019-03-03 Completed Universit y of Vaccine Quad .5 mL 00:00:00 [place] [facility] IM 6+ MO Branch Influenza Virus 2019-03-03 Completed Universit y of Vaccine Quad .5 mL 00:00:00 [place] [facility] IM 6+ MO Branch Influenza Virus 2019-03-03 Completed Universit y of Vaccine Quad .5 mL 00:00:00 [place] [facility] IM 6+ MO Branch Influenza Virus 2019-03-03 Completed Universit y of Vaccine Quad .5 mL 00:00:00 [facility] IM 6+ MO Branch Influenza Virus 2019-03-03 Completed Universit y of Vaccine Quad .5 mL 00:00:00 [place] [facility] IM 6+ MO Branch Influenza Virus 2019-03-03 Completed Universit y of Vaccine Quad .5 mL 00:00:00 [place] [facility] IM 6+ MO Branch Influenza Virus 2019-03-03 Completed Universit y of Vaccine Quad .5 mL 00:00:00 [place] [facility] IM 6+ MO Branch Influenza Virus 2019-03-03 Completed Universit y of Vaccine Quad .5 mL 00:00:00 [place] [facility] IM 6+ MO Branch Influenza Virus 2019-03-03 Completed Universit y of Vaccine Quad .5 mL 00:00:00 [place] [facility] IM 6+ MO Branch Influenza Virus 2019-03-03 Completed Universit y of Vaccine Quad .5 mL 00:00:00 [place] [facility] IM 6+ MO Branch Influenza Virus 2019-03-03 Completed Universit y of Vaccine Quad .5 mL 00:00:00 [place] [facility] IM 6+ MO Branch Influenza Virus 2019-03-03 Completed Universit y of Vaccine Quad .5 mL 00:00:00 [place] [facility] IM 6+ MO Branch Influenza Virus 2019-03-03 Completed Universit y of Vaccine Quad .5 mL 00:00:00 [place] [facility] IM 6+ MO Branch Influenza Virus 2019-03-03 Completed Universit y of Vaccine Quad .5 mL 00:00:00 [place] [facility] IM 6+ MO Branch Influenza Virus 2019-03-03 Completed Univers[facility] y of Vaccine Quad .5 mL 00:00:00 [place] [facility] IM 6+ MO Branch Influenza Virus 2019-03-03 Completed Univers[facility] y of Vaccine Quad .5 mL 00:00:00 [place] [facility] IM 6+ MO Branch Influenza Virus 2019-03-03 Completed Universit y of Vaccine Quad .5 mL 00:00:00 [place] [facility] IM 6+ MO Branch HPV 2015-02-16 Completed University of 00:00:00 [place] [facility] HPV 2015-02-16 Completed [facility] of 00:00:00 [facility] Branch HPV 2015-02-16 Completed University of 00:00:00 [facility] Branch HPV 2015-02-16 Completed [facility] of 00:00:00 [facility] Branch HPV 2015-02-16 Completed [facility] of 00:00:00 [facility] Branch HPV 2015-02-16 Completed University of 00:00:00 [facility] HPV 2015-02-16 Completed University of 00:00:00 [facility] HPV 2015-02-16 Completed University of 00:00:00 [facility] Branch HPV 2015-02-16 Completed University of 00:00:00 [place] [facility] HPV 2015-02-16 Completed [facility] 00:00:00 [facility] [place] [facility] HPV 2015-02-16 Completed [facility] 00:00:00 [facility] [place] [facility] HPV 2015-02-16 Completed [facility] 00:00:00 [facility] [place] [facility] HPV 2015-02-16 Completed [facility] 00:00:00 [facility] [place] [facility] HPV 2015-02-16 Completed [facility] 00:00:00 [facility] [place] [facility] HPV 2015-02-16 Completed [facility] 00:00:00 [facility] [place] [facility] HPV 2015-02-16 Completed [facility] 00:00:00 [facility] [place] [facility] HPV 2015-02-16 Completed [facility] 00:00:00 [facility] [place] [facility] HPV 2015-02-16 Completed [facility] 00:00:00 [facility] [place] [facility] HPV 2015-02-16 Completed [facility] 00:00:00 [facility] HPV 2015-02-16 Completed [facility] 00:00:00 [facility] HPV 2014-12-19 Completed [facility] 00:00:00 [facility] Meningococcal 2014-12-19 Completed [facility] Vaccine 00:00:00 [facility] TDAP 2014-12-19 Completed [facility] 00:00:00 [facility] HPV 2014-12-19 Completed [facility] 00:00:00 [facility] Meningococcal 2014-12-19 Completed [facility] Vaccine 00:00:00 [facility] TDAP 2014-12-19 Completed [facility] 00:00:00 [facility] HPV 2014-12-19 Completed [facility] 00:00:00 [facility] Meningococcal 2014-12-19 Completed [facility] Vaccine 00:00:00 [facility] TDAP 2014-12-19 Completed [facility] 00:00:00 [facility] HPV 2014-12-19 Completed [facility] 00:00:00 [facility] Meningococcal 2014-12-19 Completed [facility] Vaccine 00:00:00 [facility] [place] [facility] TDAP 2014-12-19 Completed [facility] 00:00:00 [facility] [place] [facility] HPV 2014-12-19 Completed [facility] 00:00:00 [facility] Meningococcal 2014-12-19 Completed [facility] Vaccine 00:00:00 [facility] TDAP 2014-12-19 Completed [facility] 00:00:00 [facility] [place] [facility] HPV 2014-12-19 Completed [facility] 00:00:00 [facility] Meningococcal 2014-12-19 Completed [facility] Vaccine 00:00:00 [facility] TDAP 2014-12-19 Completed [facility] 00:00:00 [facility] HPV 2014-12-19 Completed [facility] 00:00:00 [facility] Meningococcal 2014-12-19 Completed [facility] Vaccine 00:00:00 [facility] TDAP 2014-12-19 Completed [facility] 00:00:00 [facility] HPV 2014-12-19 Completed [facility] 00:00:00 [facility] Meningococcal 2014-12-19 Completed [facility] Vaccine 00:00:00 [facility] TDAP 2014-12-19 Completed [facility] 00:00:00 [facility] HPV 2014-12-19 Completed [facility] 00:00:00 [facility] Meningococcal 2014-12-19 Completed [facility] Vaccine 00:00:00 [facility] TDAP 2014-12-19 Completed [facility] 00:00:00 [facility] HPV 2014-12-19 Completed [facility] 00:00:00 [facility] Meningococcal 2014-12-19 Completed [facility] Vaccine 00:00:00 [facility] TDAP 2014-12-19 Completed [facility] 00:00:00 [facility] HPV 2014-12-19 Completed [facility] 00:00:00 [facility] Meningococcal 2014-12-19 Completed [facility] Vaccine 00:00:00 [facility] TDAP 2014-12-19 Completed [facility] 00:00:00 [facility] HPV 2014-12-19 Completed [facility] 00:00:00 [facility] Meningococcal 2014-12-19 Completed [facility] Vaccine 00:00:00 [facility] TDAP 2014-12-19 Completed [facility] 00:00:00 [facility] HPV 2014-12-19 Completed [facility] 00:00:00 [facility] Meningococcal 2014-12-19 Completed [facility] Vaccine 00:00:00 [facility] TDAP 2014-12-19 Completed [facility] 00:00:00 [facility] HPV 2014-12-19 Completed [facility] 00:00:00 [facility] Meningococcal 2014-12-19 Completed [facility] Vaccine 00:00:00 [facility] TDAP 2014-12-19 Completed [facility] 00:00:00 [facility] HPV 2014-12-19 Completed [facility] 00:00:00 [facility] Meningococcal 2014-12-19 Completed [facility] Vaccine 00:00:00 [facility] TDAP 2014-12-19 Completed [facility] 00[facility]00:00 [facility] HPV 2014-12-19 Completed [facility] 00:00:00 [facility] Meningococcal 2014-12-19 Completed [facility] Vaccine 00:00:00 [facility] TDAP 2014-12-19 Completed [facility] 00[facility]00:00 [facility] HPV 2014-12-19 Completed [facility] 00:00:00 [facility] Meningococcal 2014-12-19 Completed [facility] Vaccine 00:00:00 [facility] TDAP 2014-12-19 Completed [facility] 00:00:00 [facility] HPV 2014-12-19 Completed [facility] 00:00:00 [facility] Meningococcal 2014-12-19 Completed [facility] Vaccine 00:00:00 [facility] TDAP 2014-12-19 Completed [facility] 00:00:00 [facility] HPV 2014-12-19 Completed [facility] 00:00:00 [facility] Meningococcal 2014-12-19 Completed [facility] Vaccine 00:00:00 [facility] TDAP 2014-12-19 Completed [facility] 00[facility]00:00 [facility] HPV 2014-12-19 Completed [facility] 00:00:00 [facility] Meningococcal 2014-12-19 Completed [facility] Vaccine 00:00:00 [facility] TDAP 2014-12-19 Completed [facility] 00:00:00 [facility] HPV 2011-12-19 Completed [facility] 00:00:00 [facility] Varicella 2011-12-19 Completed [facility] (varivax)(chicken 00:00:00 [place] [facility] pox) [facility] HPV 2011-12-19 Completed [facility] 00:00:00 [facility] Varicella 2011-12-19 Completed [facility] (varivax)(chicken 00:00:00 [place] [facility] pox) [facility] HPV 2011-12-19 Completed [facility] 00:00:00 [facility] Varicella 2011-12-19 Completed [facility] (varivax)(chicken 00:00:00 [place] [facility] pox) [facility] HPV 2011-12-19 Completed [facility] 00:00:00 [facility] Varicella 2011-12-19 Completed [facility] (varivax)(chicken 00:00:00 [place] [facility] pox) [facility] HPV 2011-12-19 Completed [facility] 00:00:00 [facility] Varicella 2011-12-19 Completed [facility] (varivax)(chicken 00:00:00 [place] [facility] pox) [facility] HPV 2011-12-19 Completed [facility] 00:00:00 [facility] Varicella 2011-12-19 Completed [facility] (varivax)(chicken 00:00:00 [place] [facility] pox) [facility] HPV 2011-12-19 Completed [facility] 00:00:00 [facility] Varicella 2011-12-19 Completed [facility] (varivax)(chicken 00:00:00 [place] [facility] pox) [facility] HPV 2011-12-19 Completed [facility] 00:00:00 [facility] Varicella 2011-12-19 Completed [facility] (varivax)(chicken 00:00:00 [place] [facility] pox) [facility] HPV 2011-12-19 Completed [facility] 00:00:00 [facility] Varicella 2011-12-19 Completed [facility] (varivax)(chicken 00:00:00 [place] [facility] pox) [facility] HPV 2011-12-19 Completed [facility] 00:00:00 [facility] Varicella 2011-12-19 Completed [facility] (varivax)(chicken 00:00:00 [place] [facility] pox) [facility] HPV 2011-12-19 Completed [facility] 00:00:00 [facility] Varicella 2011-12-19 Completed [facility] (varivax)(chicken 00:00:00 [place] [facility] pox) [facility] HPV 2011-12-19 Completed [facility] 00:00:00 [facility] Varicella 2011-12-19 Completed [facility] (varivax)(chicken 00:00:00 [place] [facility] pox) [facility] HPV 2011-12-19 Completed [facility] 00:00:00 [facility] Varicella 2011-12-19 Completed [facility] (varivax)(chicken 00:00:00 [place] [facility] pox) [facility] HPV 2011-12-19 Completed [facility] 00:00:00 [facility] Varicella 2011-12-19 Completed [facility] (varivax)(chicken 00:00:00 [place] [facility] pox) [facility] HPV 2011-12-19 Completed [facility] 00:00:00 [facility] Varicella 2011-12-19 Completed [facility] (varivax)(chicken 00:00:00 [place] [facility] pox) [facility] HPV 2011-12-19 Completed [facility] 00:00:00 [facility] Varicella 2011-12-19 Completed [facility] (varivax)(chicken 00:00:00 [place] [facility] pox) [facility] HPV 2011-12-19 Completed [facility] 00:00:00 [facility] Varicella 2011-12-19 Completed [facility] (varivax)(chicken 00:00:00 [place] [facility] pox) [facility] HPV 2011-12-19 Completed [facility] 00:00:00 [facility] Varicella 2011-12-19 Completed [facility] (varivax)(chicken 00:00:00 [place] [facility] pox) [facility] HPV 2011-12-19 Completed [facility] 00:00:00 [facility] Varicella 2011-12-19 Completed [facility] (varivax)(chicken 00:00:00 [place] [facility] pox) [facility] HPV 2011-12-19 Completed [facility] 00:00:00 [facility] Varicella 2011-12-19 Completed [facility] (varivax)(chicken 00:00:00 [place] [facility] pox) [facility] DTP 2006-09-15 Completed [facility] 00:00:00 [facility] MMR 2006-09-15 Completed [facility] 00:00:00 [facility] Polio (IPV/OPV) 2006-09-15 Completed [facility] 00:00:00 [facility] DTP 2006-09-15 Completed [facility] 00:00:00 [facility] MMR 2006-09-15 Completed [facility] 00:00:00 [facility] Polio (IPV/OPV) 2006-09-15 Completed [facility] 00:00:00 [facility] DTP 2006-09-15 Completed [facility] 00:00:00 [facility] MMR 2006-09-15 Completed [facility] 00:00:00 [facility] Polio (IPV/OPV) 2006-09-15 Completed [facility] 00:00:00 [facility] DTP 2006-09-15 Completed [facility] 00:00:00 [facility] MMR 2006-09-15 Completed [facility] 00:00:00 [facility] Polio (IPV/OPV) 2006-09-15 Completed [facility] 00:00:00 [facility] DTP 2006-09-15 Completed [facility] 00:00:00 [facility] MMR 2006-09-15 Completed [facility] 00:00:00 [facility] Polio (IPV/OPV) 2006-09-15 Completed [facility] 00:00:00 [facility] DTP 2006-09-15 Completed [facility] 00:00:00 [facility] [place] [facility] MMR 2006-09-15 Completed [facility] 00:00:00 [facility] [place] [facility] Polio (IPV/OPV) 2006-09-15 Completed [facility] 00:00:00 [facility] [place] [facility] DTP 2006-09-15 Completed [facility] 00:00:00 [facility] MMR 2006-09-15 Completed [facility] 00:00:00 [facility] [place] [facility] Polio (IPV/OPV) 2006-09-15 Completed [facility] 00:00:00 [facility] DTP 2006-09-15 Completed [facility] 00:00:00 [facility] MMR 2006-09-15 Completed [facility] 00:00:00 [facility] Polio (IPV/OPV) 2006-09-15 Completed [facility] 00:00:00 [facility] DTP 2006-09-15 Completed [facility] 00:00:00 [facility] MMR 2006-09-15 Completed [facility] 00:00:00 [facility] Polio (IPV/OPV) 2006-09-15 Completed [facility] 00:00:00 [facility] DTP 2006-09-15 Completed [facility] 00:00:00 [facility] MMR 2006-09-15 Completed [facility] 00:00:00 [facility] Polio (IPV/OPV) 2006-09-15 Completed [facility] 00:00:00 [facility] DTP 2006-09-15 Completed [facility] 00:00:00 [facility] MMR 2006-09-15 Completed [facility] 00:00:00 [facility] Polio (IPV/OPV) 2006-09-15 Completed [facility] 00:00:00 [facility] DTP 2006-09-15 Completed [facility] 00:00:00 [facility] MMR 2006-09-15 Completed [facility] 00:00:00 [facility] Polio (IPV/OPV) 2006-09-15 Completed [facility] 00:00:00 [facility] DTP 2006-09-15 Completed [facility] 00:00:00 [facility] MMR 2006-09-15 Completed [facility] 00:00:00 [facility] Polio (IPV/OPV) 2006-09-15 Completed [facility] 00:00:00 [facility] DTP 2006-09-15 Completed [facility] 00:00:00 [facility] MMR 2006-09-15 Completed [facility] 00:00:00 [facility] Polio (IPV/OPV) 2006-09-15 Completed [facility] 00:00:00 [facility] DTP 2006-09-15 Completed [facility] 00:00:00 [facility] MMR 2006-09-15 Completed [facility] 00:00:00 [facility] Polio (IPV/OPV) 2006-09-15 Completed [facility] 00:00:00 [facility] DTP 2006-09-15 Completed [facility] 00:00:00 [facility] MMR 2006-09-15 Completed [facility] 00:00:00 [facility] Polio (IPV/OPV) 2006-09-15 Completed [facility] 00:00:00 [facility] DTP 2006-09-15 Completed [facility] 00:00:00 [facility] MMR 2006-09-15 Completed [facility] 00:00:00 [facility] Polio (IPV/OPV) 2006-09-15 Completed [facility] 00:00:00 [facility] DTP 2006-09-15 Completed [facility] 00:00:00 [facility] MMR 2006-09-15 Completed [facility] 00:00:00 [facility] Polio (IPV/OPV) 2006-09-15 Completed [facility] 00:00:00 [facility] DTP 2006-09-15 Completed [facility] 00:00:00 [facility] MMR 2006-09-15 Completed [facility] 00:00:00 [facility] Polio (IPV/OPV) 2006-09-15 Completed [facility] 00:00:00 [facility] DTP 2006-09-15 Completed [facility] 00:00:00 [facility] MMR 2006-09-15 Completed [facility] 00:00:00 [facility] Polio (IPV/OPV) 2006-09-15 Completed [facility] 00:00:00 [facility] HEPATITIS A 2006-09-03 Completed [facility] 00:00:00 [facility] HEPATITIS A 2006-09-03 Completed [facility] 00:00:00 [facility] HEPATITIS A 2006-09-03 Completed [facility] 00:00:00 [facility] HEPATITIS A 2006-09-03 Completed [facility] 00:00:00 [facility] HEPATITIS A 2006-09-03 Completed [facility] 00:00:00 [facility] HEPATITIS A 2006-09-03 Completed [facility] 00:00:00 [facility] HEPATITIS A 2006-09-03 Completed [facility] 00:00:00 [facility] HEPATITIS A 2006-09-03 Completed [facility] 00:00:00 [facility] HEPATITIS A 2006-09-03 Completed [facility] 00:00:00 [facility] HEPATITIS A 2006-09-03 Completed [facility] 00:00:00 [facility] HEPATITIS A 2006-09-03 Completed [facility] 00:00:00 [facility] HEPATITIS A 2006-09-03 Completed [facility] 00:00:00 [facility] HEPATITIS A 2006-09-03 Completed [facility] 00:00:00 [facility] HEPATITIS A 2006-09-03 Completed [facility] 00:00:00 [facility] HEPATITIS A 2006-09-03 Completed [facility] 00:00:00 [facility] HEPATITIS A 2006-09-03 Completed [facility] 00:00:00 [facility] HEPATITIS A 2006-09-03 Completed [facility] 00:00:00 [facility] HEPATITIS A 2006-09-03 Completed [facility] 00:00:00 [facility] HEPATITIS A 2006-09-03 Completed [facility] 00:00:00 [facility] HEPATITIS A 2006-09-03 Completed [facility] 00:00:00 [facility] HEPATITIS A 2006-01-29 Completed [facility] 00:00:00 [facility] Pneumococcal 7 2006-01-29 Completed [facility] of Conjugate, PCV7 00:00:00 [place] [facility] (Prevnar7) [place] HEPATITIS A 2006-01-29 Completed [facility] 00:00:00 [facility] Pneumococcal 7 2006-01-29 Completed [facility] Conjugate, PCV7 00:00:00 [place] [facility] (Prevnar7) [place] HEPATITIS A 2006-01-29 Completed [facility] 00:00:00 [facility] Pneumococcal 7 2006-01-29 Completed [facility] Conjugate, PCV7 00:00:00 [place] [facility] (Prevnar7) [facility] HEPATITIS A 2006-01-29 Completed [facility] 00:00:00 [facility] Pneumococcal 7 2006-01-29 Completed [facility] Conjugate, PCV7 00:00:00 [place] [facility] (Prevnar7) [place] HEPATITIS A 2006-01-29 Completed [facility] 00:00:00 [facility] Pneumococcal 7 2006-01-29 Completed [facility] Conjugate, PCV7 00:00:00 [place] [facility] (Prevnar7) [facility] HEPATITIS A 2006-01-29 Completed [facility] 00:00:00 [facility] Pneumococcal 7 2006-01-29 Completed [facility] Conjugate, PCV7 00:00:00 [place] [facility] (Prevnar7) [facility] HEPATITIS A 2006-01-29 Completed [facility] 00:00:00 [facility] Pneumococcal 7 2006-01-29 Completed [facility] Conjugate, PCV7 00:00:00 [place] [facility] (Prevnar7) [facility] HEPATITIS A 2006-01-29 Completed [facility] 00:00:00 [facility] Pneumococcal 7 2006-01-29 Completed [facility] Conjugate, PCV7 00:00:00 [place] [facility] (Prevnar7) [facility] HEPATITIS A 2006-01-29 Completed [facility] 00:00:00 [facility] Pneumococcal 7 2006-01-29 Completed [facility] Conjugate, PCV7 00:00:00 [place] [facility] (Prevnar7) [facility] HEPATITIS A 2006-01-29 Completed [facility] 00:00:00 [facility] Pneumococcal 7 2006-01-29 Completed [facility] Conjugate, PCV7 00:00:00 [place] [facility] (Prevnar7) [facility] HEPATITIS A 2006-01-29 Completed [facility] 00:00:00 [facility] Pneumococcal 7 2006-01-29 Completed [facility] Conjugate, PCV7 00:00:00 [place] [facility] (Prevnar7) [facility] HEPATITIS A 2006-01-29 Completed [facility] 00:00:00 [facility] Pneumococcal 7 2006-01-29 Completed [facility] Conjugate, PCV7 00:00:00 [place] [facility] (Prevnar7) [facility] HEPATITIS A 2006-01-29 Completed [facility] 00:00:00 [facility] Pneumococcal 7 2006-01-29 Completed [facility] Conjugate, PCV7 00:00:00 [place] [facility] (Prevnar7) [facility] HEPATITIS A 2006-01-29 Completed [facility] 00:00:00 [facility] Pneumococcal 7 2006-01-29 Completed [facility] Conjugate, PCV7 00:00:00 [place] [facility] (Prevnar7) [facility] HEPATITIS A 2006-01-29 Completed [facility] 00:00:00 [facility] Pneumococcal 7 2006-01-29 Completed [facility] Conjugate, PCV7 00:00:00 [place] [facility] (Prevnar7) [facility] HEPATITIS A 2006-01-29 Completed [facility] 00:00:00 [facility] Pneumococcal 7 2006-01-29 Completed [facility] Conjugate, PCV7 00:00:00 [place] [facility] (Prevnar7) [facility] HEPATITIS A 2006-01-29 Completed [facility] 00:00:00 [facility] Pneumococcal 7 2006-01-29 Completed [facility] Conjugate, PCV7 00:00:00 [place] [facility] (Prevnar7) [facility] HEPATITIS A 2006-01-29 Completed [facility] 00:00:00 [facility] Pneumococcal 7 2006-01-29 Completed [facility] Conjugate, PCV7 00:00:00 [place] [facility] (Prevnar7) [facility] HEPATITIS A 2006-01-29 Completed [facility] 00:00:00 [facility] Pneumococcal 7 2006-01-29 Completed [facility] Conjugate, PCV7 00:00:00 [place] [facility] (Prevnar7) [facility] HEPATITIS A 2006-01-29 Completed [facility] 00:00:00 [facility] Pneumococcal 7 2006-01-29 Completed [facility] Conjugate, PCV7 00:00:00 [place] [facility] (Prevnar7) [facility] DTP 2004-07-29 Completed [facility] 00:00:00 [facility] Varicella 2004-07-29 Completed [facility] (varivax)(chicken 00:00:00 [place] [facility] pox) [facility] DTP 2004-07-29 Completed [facility] 00:00:00 [facility] Varicella 2004-07-29 Completed [facility] (varivax)(chicken 00:00:00 [place] [facility] pox) [facility] DTP 2004-07-29 Completed [facility] 00:00:00 [facility] Varicella 2004-07-29 Completed [facility] (varivax)(chicken 00:00:00 [place] [facility] pox) [facility] DTP 2004-07-29 Completed [facility] 00:00:00 [facility] Varicella 2004-07-29 Completed [facility] (varivax)(chicken 00:00:00 [place] [facility] pox) [facility] DTP 2004-07-29 Completed [facility] 00:00:00 [facility] Varicella 2004-07-29 Completed [facility] (varivax)(chicken 00:00:00 [place] [facility] pox) [facility] DTP 2004-07-29 Completed [facility] 00:00:00 [facility] Varicella 2004-07-29 Completed [facility] (varivax)(chicken 00:00:00 [place] [facility] pox) [facility] DTP 2004-07-29 Completed [facility] 00:00:00 [facility] Varicella 2004-07-29 Completed [facility] (varivax)(chicken 00:00:00 [place] [facility] pox) [facility] DTP 2004-07-29 Completed [facility] 00:[facility]:00 [facility] [facility] Varicella 2004-07-29 Completed [facility] (varivax)(chicken 00:00:00 [place] [facility] pox[facility] DTP 2004-07-29 Completed [facility] 00:00:00 [facility] Varicella 2004-07-29 Completed [facility] (varivax)(chicken 00:00:00 [place] [facility] pox) [facility] DTP 2004-07-29 Completed [facility] 00:00:00 [facility] Varicella 2004-07-29 Completed [facility] (varivax)(chicken 00:00:00 [place] [facility] pox) [facility] DTP 2004-07-29 Completed [facility] 00:00:00 [facility] Varicella 2004-07-29 Completed [facility] (varivax)(chicken 00:00:00 [place] [facility] pox) [facility] DTP 2004-07-29 Completed [facility] 00:00:00 [facility] Varicella 2004-07-29 Completed [facility] (varivax)(chicken 00:00:00 [place] [facility] pox) [facility] DTP 2004-07-29 Completed [facility] 00:00:00 [facility] Varicella 2004-07-29 Completed [facility] (varivax)(chicken 00:00:00 [place] [facility] pox) [facility] DTP 2004-07-29 Completed [facility] 00:00:00 [facility] Varicella 2004-07-29 Completed [facility] (varivax)(chicken 00:00:00 [place] [facility] pox) [facility] DTP 2004-07-29 Completed [facility] 00:00:00 [facility] Varicella 2004-07-29 Completed [facility] (varivax)(chicken 00:00:00 [place] [facility] pox) [facility] DTP 2004-07-29 Completed [facility] 00:00:00 [facility] Varicella 2004-07-29 Completed [facility] (varivax)(chicken 00:00:00 [place] [facility] pox) [facility] DTP 2004-07-29 Completed [facility] 00:00:00 [facility] Varicella 2004-07-29 Completed [facility] (varivax)(chicken 00:00:00 [place] [facility] pox) [facility] DTP 2004-07-29 Completed [facility] 00:00:00 [facility] Varicella 2004-07-29 Completed [facility] (varivax)(chicken 00:00:00 [place] [facility]ox[facility] DTP 2004-07-29 Completed [facility] 00:00:00 [facility] Varicella 2004-07-29 Completed [facility] (varivax)(chicken 00:00:00 [place] [facility] pox) [facility] DTP 2004-07-29 Completed [facility] 00:00:00 [facility] Varicella 2004-07-29 Completed [facility] (varivax)(chicken 00:00:00 [place] [facility] pox[facility] HIB 4 Dose Schedule 2003-10-02 Completed Unive rsity of 00:00:00 [facility] MMR 2003-10-02 Completed [facility] 00:00:00 [facility] Polio (IPV/OPV) 2003-10-02 Completed [facility] 00:00:00 [facility] HIB 4 Dose Schedule 2003-10-02 Completed [facility]ive rsity of 00:00:00 [facility] MMR 2003-10-02 Completed [facility] 00:00:00 [facility] Polio (IPV/OPV) 2003-10-02 Completed [facility] 00:00:00 [facility] HIB 4 Dose Schedule 2003-10-02 Completed [facility]ive rsity of 00:00:00 [facility] MMR 2003-10-02 Completed [facility] 00:00:00 [facility] Polio (IPV/OPV) 2003-10-02 Completed [facility] 00:00:00 [facility] HIB 4 Dose Schedule 2003-10-02 Completed [facility]ive rsity of 00:00:00 [facility] MMR 2003-10-02 Completed [facility] 00:00:00 [facility] Polio (IPV/OPV) 2003-10-02 Completed [facility] 00:00:00 [facility] HIB 4 Dose Schedule 2003-10-02 Completed [facility]ive rsity of 00:00:00 [facility] MMR 2003-10-02 Completed [facility] 00:00:00 [facility] Polio (IPV/OPV) 2003-10-02 Completed [facility] 00:00:00 [facility] HIB 4 Dose Schedule 2003-10-02 Completed [facility]ive rsity of 00:00:00 [facility] MMR 2003-10-02 Completed [facility] 00:00:00 [facility] Polio (IPV/OPV) 2003-10-02 Completed [facility] of 00:00:00 [facility] HIB 4 Dose Schedule 2003-10-02 Completed Unive rsity of 00:00:00 [facility] MMR 2003-10-02 Completed [facility] 00:00:00 [facility] Polio (IPV/OPV) 2003-10-02 Completed [facility] y of 00:00:00 [facility] HIB 4 Dose Schedule 2003-10-02 Completed [facility]ive rsity of 00:00:00 [facility] MMR 2003-10-02 Completed [facility] 00:00:00 [facility] Polio (IPV/OPV) 2003-10-02 Completed [facility] y of 00:00:00 [facility] HIB 4 Dose Schedule 2003-10-02 Completed [facility]ive rsity of 00:00:00 [facility] MMR 2003-10-02 Completed [facility] 00:00:00 [facility] Polio (IPV/OPV) 2003-10-02 Completed [facility] 00:00:00 [facility] HIB 4 Dose Schedule 2003-10-02 Completed Unive rsity of 00:00:00 [facility] MMR 2003-10-02 Completed [facility] 00:00:00 [facility] Polio (IPV/OPV) 2003-10-02 Completed [facility] of 00:00:00 [facility] HIB 4 Dose Schedule 2003-10-02 Completed Unive rsity of 00:00:00 [facility] MMR 2003-10-02 Completed [facility] 00:00:00 [facility] Polio (IPV/OPV) 2003-10-02 Completed [facility] of 00:00:00 [facility] HIB 4 Dose Schedule 2003-10-02 Completed [facility]ive rsity of 00:00:00 [facility] MMR 2003-10-02 Completed [facility] 00:00:00 [facility] Polio (IPV/OPV) 2003-10-02 Completed [facility] 00[facility]00:00 [facility] HIB 4 Dose Schedule 2003-10-02 Completed Unive rsity of 00:00:00 [facility] MMR 2003-10-02 Completed [facility] 00:00:00 [facility] Polio (IPV/OPV) 2003-10-02 Completed [facility] of 00:00:00 [facility] HIB 4 Dose Schedule 2003-10-02 Completed [facility]ive rsity of 00:00:00 [facility] MMR 2003-10-02 Completed [facility] 00:00:00 [facility] Polio (IPV/OPV) 2003-10-02 Completed [facility] y of 00:00:00 [facility] HIB 4 Dose Schedule 2003-10-02 Completed [facility]ive rsity of 00:00:00 [facility] MMR 2003-10-02 Completed [facility] 00:00:00 [facility] Polio (IPV/OPV) 2003-10-02 Completed [facility] of 00:00:00 [facility] HIB 4 Dose Schedule 2003-10-02 Completed Unive rsity of 00:00:00 [facility] MMR 2003-10-02 Completed [facility] 00:00:00 [facility] Polio (IPV/OPV) 2003-10-02 Completed [facility] of 00:00:00 [facility] HIB 4 Dose Schedule 2003-10-02 Completed Unive rsity of 00:00:00 [facility] MMR 2003-10-02 Completed [facility] 00:00:00 [facility] Polio (IPV/OPV) 2003-10-02 Completed [facility] of 00:00:00 [facility] HIB 4 Dose Schedule 2003-10-02 Completed [facility]ive rsity of 00:00:00 [facility] MMR 2003-10-02 Completed [facility] 00:00:00 [facility] Polio (IPV/OPV) 2003-10-02 Completed [facility] of 00:00:00 [facility] HIB 4 Dose Schedule 2003-10-02 Completed Unive rsity of 00:00:00 [facility] MMR 2003-10-02 Completed [facility] 00:00:00 [facility] Polio (IPV/OPV) 2003-10-02 Completed [facility] of 00:00:00 [facility] HIB 4 Dose Schedule 2003-10-02 Completed Unive rsity of 00:00:00 [facility] MMR 2003-10-02 Completed [facility] 00:00:00 [facility] Polio (IPV/OPV) 2003-10-02 Completed [facility] of 00:00:00 [facility] DTP 2003-03-29 Completed [facility] 00:00:00 [facility] HIB 4 Dose Schedule 2003-03-29 Completed [facility]ive rsity of 00:00:00 [facility] Hep B, Adol or Pedi 2003-03-29 Completed Unive rsity of Dosage 00:00:00 [facility] Polio (IPV/OPV) 2003-03-29 Completed [facility] of 00:00:00 [facility] Pneumococcal 7 2003-03-29 Completed [facility] of Conjugate, PCV7 00:00:00 [place] [facility] (Prevnar7) Branch DTP 2003-03-29 Completed [facility] 00:00:00 [facility] HIB 4 Dose Schedule 2003-03-29 Completed Unive rsity of 00:00:00 [facility] Hep B, Adol or Pedi 2003-03-29 Completed Unive rsity of Dosage 00:00:00 [facility] Polio (IPV/OPV) 2003-03-29 Completed [facility] of 00:00:00 [facility] Pneumococcal 7 2003-03-29 Completed [facility] of Conjugate, PCV7 00:00:00 [place] [facility] (Prevnar7) Branch DTP 2003-03-29 Completed [facility] 00:00:00 [facility] HIB 4 Dose Schedule 2003-03-29 Completed Unive rsity of 00:00:00 [facility] Hep B, Adol or Pedi 2003-03-29 Completed Unive rsity of Dosage 00:00:00 [facility] Polio (IPV/OPV) 2003-03-29 Completed [facility] of 00:00:00 [facility] Pneumococcal 7 2003-03-29 Completed [facility] Conjugate, PCV7 00:00:00 [place] [facility] (Prevnar7) [facility] DTP 2003-03-29 Completed [facility] 00:00:00 [facility] HIB 4 Dose Schedule 2003-03-29 Completed Unive rsity of 00:00:00 [facility] Hep B, Adol or Pedi 2003-03-29 Completed Unive rsity of Dosage 00:00:00 [facility] Polio (IPV/OPV) 2003-03-29 Completed [facility] of 00:00:00 [facility] Pneumococcal 7 2003-03-29 Completed [facility] Conjugate, PCV7 00:00:00 [place] [facility] (Prevnar7) [facility] DTP 2003-03-29 Completed [facility] 00:00:00 [facility] HIB 4 Dose Schedule 2003-03-29 Completed Unive rsity of 00:00:00 [facility] Hep B, Adol or Pedi 2003-03-29 Completed Unive rsity of Dosage 00:00:00 [facility] Polio (IPV/OPV) 2003-03-29 Completed [facility] of 00:00:00 [facility] Pneumococcal 7 2003-03-29 Completed [facility] of Conjugate, PCV7 00:00:00 [place] [facility] (Prevnar7) [facility] DTP 2003-03-29 Completed [facility] 00:00:00 [facility] HIB 4 Dose Schedule 2003-03-29 Completed Unive rsity of 00:00:00 [facility] Hep B, Adol or Pedi 2003-03-29 Completed Unive rsity of Dosage 00:00:00 [facility] Polio (IPV/OPV) 2003-03-29 Completed [facility] 00:00:00 [facility] Pneumococcal 7 2003-03-29 Completed [facility] Conjugate, PCV7 00:00:00 [place] [facility] (Prevnar7) [facility] DTP 2003-03-29 Completed [facility] 00:00:00 [facility] HIB 4 Dose Schedule 2003-03-29 Completed Unive rsity of 00:00:00 [facility] Hep B, Adol or Pedi 2003-03-29 Completed Unive rsity of Dosage 00:00:00 [facility] Polio (IPV/OPV) 2003-03-29 Completed [facility] 00:00:00 [facility] Pneumococcal 7 2003-03-29 Completed [facility] Conjugate, PCV7 00:00:00 [place] [facility] (Prevnar7) [facility] DTP 2003-03-29 Completed [facility] 00:00:00 [facility] HIB 4 Dose Schedule 2003-03-29 Completed Unive rsity of 00:00:00 [facility] Hep B, Adol or Pedi 2003-03-29 Completed Unive rsity of Dosage 00:00:00 [facility] Polio (IPV/OPV) 2003-03-29 Completed [facility] 00:00:00 [facility] Pneumococcal 7 2003-03-29 Completed [facility] Conjugate, PCV7 00:00:00 [place] [facility] (Prevnar7) Branch DTP 2003-03-29 Completed [facility] 00:00:00 [facility] HIB 4 Dose Schedule 2003-03-29 Completed Unive rsity of 00:00:00 [facility] Hep B, Adol or Pedi 2003-03-29 Completed Unive rsity of Dosage 00:00:00 [facility] Polio (IPV/OPV) 2003-03-29 Completed [facility] 00:00:00 [facility] Pneumococcal 7 2003-03-29 Completed [facility] Conjugate, PCV7 00:00:00 [place] [facility] (Prevnar7) Branch DTP 2003-03-29 Completed [facility] 00:00:00 [facility] HIB 4 Dose Schedule 2003-03-29 Completed Unive rsity of 00:00:00 [facility] Hep B, Adol or Pedi 2003-03-29 Completed Unive rsity of Dosage 00:00:00 [facility] Polio (IPV/OPV) 2003-03-29 Completed [facility] of 00:00:00 [facility] Pneumococcal 7 2003-03-29 Completed [facility] Conjugate, PCV7 00:00:00 [place] [facility] (Prevnar7) Branch DTP 2003-03-29 Completed [facility] 00:00:00 [facility] HIB 4 Dose Schedule 2003-03-29 Completed Unive rsity of 00:00:00 [facility] Hep B, Adol or Pedi 2003-03-29 Completed Unive rsity of Dosage 00:00:00 [facility] Polio (IPV/OPV) 2003-03-29 Completed [facility] 00:00:00 [facility] Pneumococcal 7 2003-03-29 Completed [facility] Conjugate, PCV7 00:00:00 [place] [facility] (Prevnar7) Branch DTP 2003-03-29 Completed [facility] 00:00:00 [facility] HIB 4 Dose Schedule 2003-03-29 Completed Unive rsity of 00:00:00 [facility] Hep B, Adol or Pedi 2003-03-29 Completed [facility]ive rsity of Dosage 00:00:00 [facility] Polio (IPV/OPV) 2003-03-29 Completed [facility] of 00:00:00 [facility] Pneumococcal 7 2003-03-29 Completed [facility] of Conjugate, PCV7 00:00:00 [place] [facility] (Prevnar7) Branch DTP 2003-03-29 Completed [facility] 00:00:00 [facility] HIB 4 Dose Schedule 2003-03-29 Completed Unive rsity of 00:00:00 [facility] Hep B, Adol or Pedi 2003-03-29 Completed Unive rs[facility] of Dosage 00:00:00 [facility] Polio (IPV/OPV) 2003-03-29 Completed [facility] of 00:00:00 [facility] Pneumococcal 7 2003-03-29 Completed [facility] Conjugate, PCV7 00:00:00 [place] [facility] (Prevnar7) Branch DTP 2003-03-29 Completed [facility] 00:00:00 [facility] HIB 4 Dose Schedule 2003-03-29 Completed Unive rsity of 00:00:00 [facility] Hep B, Adol or Pedi 2003-03-29 Completed Unive rsity of Dosage 00:00:00 [facility] Polio (IPV/OPV) 2003-03-29 Completed [facility] 00:00:00 [facility] Pneumococcal 7 2003-03-29 Completed [facility] Conjugate, PCV7 00:00:00 [place] [facility] (Prevnar7) Branch DTP 2003-03-29 Completed [facility] 00:00:00 [facility] HIB 4 Dose Schedule 2003-03-29 Completed [facility]ive rsity of 00:00:00 [facility] Hep B, Adol or Pedi 2003-03-29 Completed Unive rsity of Dosage 00:00:00 [facility] Polio (IPV/OPV) 2003-03-29 Completed [facility] 00:00:00 [facility] Pneumococcal 7 2003-03-29 Completed [facility] Conjugate, PCV7 00:00:00 [place] [facility] (Prevnar7) Branch DTP 2003-03-29 Completed [facility] 00:00:00 [facility] HIB 4 Dose Schedule 2003-03-29 Completed [facility]ive rsity of 00:00:00 [facility] Hep B, Adol or Pedi 2003-03-29 Completed Unive rs[facility] of Dosage 00:00:00 [facility] Polio (IPV/OPV) 2003-03-29 Completed [facility] 00:00:00 [facility] Pneumococcal 7 2003-03-29 Completed [facility] Conjugate, PCV7 00:00:00 [place] [facility] (Prevnar7) Branch DTP 2003-03-29 Completed [facility] 00:00:00 [facility] HIB 4 Dose Schedule 2003-03-29 Completed Unive rsity of 00:00:00 [facility] Hep B, Adol or Pedi 2003-03-29 Completed [facility]ive [facility]ity of Dosage 00:00:00 [facility] Polio (IPV/OPV) 2003-03-29 Completed [facility] 00:00:00 [facility] Pneumococcal 7 2003-03-29 Completed [facility] Conjugate, PCV7 00:00:00 [place] [facility] (Prevnar7) [facility] DTP 2003-03-29 Completed [facility] 00:00:00 [facility] HIB 4 Dose Schedule 2003-03-29 Completed Unive rsity of 00:00:00 [facility] Hep B, Adol or Pedi 2003-03-29 Completed Unive rs[facility] of Dosage 00:00:00 [facility] Polio (IPV/OPV) 2003-03-29 Completed [facility] 00:00:00 [facility] Pneumococcal 7 2003-03-29 Completed [facility] Conjugate, PCV7 00:00:00 [place] [facility] (Prevnar7) [facility] DTP 2003-03-29 Completed [facility] 00:00:00 [facility] HIB 4 Dose Schedule 2003-03-29 Completed [facility]ive rsity of 00:00:00 [facility] Hep B, Adol or Pedi 2003-03-29 Completed Unive rs[facility] of Dosage 00:00:00 [facility] Polio (IPV/OPV) 2003-03-29 Completed [facility] 00:00:00 [facility] Pneumococcal 7 2003-03-29 Completed [facility] Conjugate, PCV7 00:00:00 [place] [facility] (Prevnar7) [facility] DTP 2003-03-29 Completed [facility] 00:00:00 [facility] HIB 4 Dose Schedule 2003-03-29 Completed [facility]ive rsity of 00:00:00 [facility] Hep B, Adol or Pedi 2003-03-29 Completed Unive rsity of Dosage 00:00:00 [facility] Polio (IPV/OPV) 2003-03-29 Completed [facility] 00:00:00 [facility] Pneumococcal 7 2003-03-29 Completed [facility] of Conjugate, PCV7 00:00:00 [place] [facility] (Prevnar7) [facility] DTP 2003-01-16 Completed [facility] 00:00:00 [facility] HIB 4 Dose Schedule 2003-01-16 Completed [facility]ive [facility]ity of 00:00:00 [facility] Polio (IPV/OPV) 2003-01-16 Completed [facility] 00:00:00 [facility] Pneumococcal 7 2003-01-16 Completed [facility] Conjugate, PCV7 00:00:00 [place] [facility] (Prevnar7) [facility] DT 2003-01-16 Completed [facility] 00:00:00 [facility] HIB 4 Dose Schedule 2003-01-16 Completed Unive rsity of 00:00:00 [facility] Polio (IPV/OPV) 2003-01-16 Completed [facility] 00:00:00 [facility] Pneumococcal 7 2003-01-16 Completed [facility] Conjugate, PCV7 00:00:00 [place] [facility] (Prevnar7) [facility] DT 2003-01-16 Completed [facility] 00:00:00 [facility] HIB 4 Dose Schedule 2003-01-16 Completed [facility]ive [facility] of 00:00:00 [facility] Polio (IPV/OPV) 2003-01-16 Completed [facility] 00:00:00 [facility] Pneumococcal 7 2003-01-16 Completed [facility] Conjugate, PCV7 00:00:00 [place] [facility] (Prevnar7) [facility] DT 2003-01-16 Completed [facility] 00:00:00 [facility] HIB 4 Dose Schedule 2003-01-16 Completed [facility]ive rs[facility] of 00:00:00 [facility] Polio (IPV/OPV) 2003-01-16 Completed [facility] 00:00:00 [facility] Pneumococcal 7 2003-01-16 Completed [facility] of Conjugate, PCV7 00:00:00 [place] [facility] (Prevnar7) [facility] DT 2003-01-16 Completed [facility] 00:00:00 [facility] HIB 4 Dose Schedule 2003-01-16 Completed [facility] of 00:00:00 [facility] Polio (IPV/OPV) 2003-01-16 Completed [facility] 00:00:00 [facility] Pneumococcal 7 2003-01-16 Completed [facility] Conjugate, PCV7 00:00:00 [place] [facility] (Prevnar7) [facility] DT 2003-01-16 Completed [facility] 00:00:00 [facility] HIB 4 Dose Schedule 2003-01-16 Completed [facility]ive [facility] of 00:00:00 [facility] Polio (IPV/OPV) 2003-01-16 Completed [facility] 00:00:00 [facility] Pneumococcal 7 2003-01-16 Completed [facility] Conjugate, PCV7 00:00:00 [place] [facility] (Prevnar7) [facility] DTP 2003-01-16 Completed [facility] 00:00:00 [facility] HIB 4 Dose Schedule 2003-01-16 Completed [facility] of 00:00:00 [facility] Polio (IPV/OPV) 2003-01-16 Completed [facility] 00:00:00 [facility] Pneumococcal 7 2003-01-16 Completed [facility] Conjugate, PCV7 00:00:00 [place] [facility] (Prevnar7) [facility] DTP 2003-01-16 Completed [facility] 00:00:00 [facility] HIB 4 Dose Schedule 2003-01-16 Completed [facility]ive [facility] of 00:00:00 [facility] Polio (IPV/OPV) 2003-01-16 Completed [facility] 00:00:00 [facility] Pneumococcal 7 2003-01-16 Completed [facility] of Conjugate, PCV7 00:00:00 [place] [facility] (Prevnar7) [facility] DT 2003-01-16 Completed [facility] 00:00:00 [facility] HIB 4 Dose Schedule 2003-01-16 Completed [facility]ive [facility] of 00:00:00 [facility] Polio (IPV/OPV) 2003-01-16 Completed [facility] 00:00:00 [facility] Pneumococcal 7 2003-01-16 Completed [facility] Conjugate, PCV7 00:00:00 [place] [facility] (Prevnar7) [facility] DT 2003-01-16 Completed [facility] 00:00:00 [facility] HIB 4 Dose Schedule 2003-01-16 Completed [facility] of 00:00:00 [facility] Polio (IPV/OPV) 2003-01-16 Completed [facility] 00:00:00 [facility] Pneumococcal 7 2003-01-16 Completed [facility] Conjugate, PCV7 00:00:00 [place] [facility] (Prevnar7) [facility] DTP 2003-01-16 Completed [facility] 00:00:00 [facility] HIB 4 Dose Schedule 2003-01-16 Completed [facility] of 00:00:00 [facility] Polio (IPV/OPV) 2003-01-16 Completed [facility]it [facility] 00:00:00 [facility] Pneumococcal 7 2003-01-16 Completed University of Conjugate, PCV7 00:00:00 [place] [facility] (Prevnar7) [facility] DTP 2003-01-16 Completed University of 00:00:00 [facility] HIB 4 Dose Schedule 2003-01-16 Completed Unive rsity of 00:00:00 [facility] Polio (IPV/OPV) 2003-01-16 Completed Universit y of 00:00:00 [facility] Pneumococcal 7 2003-01-16 Completed University of Conjugate, PCV7 00:00:00 [place] [facility] (Prevnar7) [facility] DTP 2003-01-16 Completed University of 00:00:00 [facility] HIB 4 Dose Schedule 2003-01-16 Completed Unive rsity of 00:00:00 [facility] Polio (IPV/OPV) 2003-01-16 Completed Universit y of 00:00:00 [facility] Pneumococcal 7 2003-01-16 Completed University of Conjugate, PCV7 00:00:00 [place] [facility] (Prevnar7) [facility] DT 2003-01-16 Completed University of 00:00:00 [facility] HIB 4 Dose Schedule 2003-01-16 Completed Unive rsity of 00:00:00 [facility] Polio (IPV/OPV) 2003-01-16 Completed Universit y of 00:00:00 [facility] Pneumococcal 7 2003-01-16 Completed University of Conjugate, PCV7 00:00:00 [place] [facility] (Prevnar7) [facility] DT 2003-01-16 Completed University of 00:00:00 [facility] HIB 4 Dose Schedule 2003-01-16 Completed Unive rsity of 00:00:00 [facility] Polio (IPV/OPV) 2003-01-16 Completed Universit y of 00:00:00 [facility] Pneumococcal 7 2003-01-16 Completed University of Conjugate, PCV7 00:00:00 [place] [facility] (Prevnar7) [facility] DTP 2003-01-16 Completed University of 00:00:00 [facility] HIB 4 Dose Schedule 2003-01-16 Completed Unive rsity of 00:00:00 [facility] Polio (IPV/OPV) 2003-01-16 Completed Universit y of 00:00:00 [facility] Pneumococcal 7 2003-01-16 Completed University of Conjugate, PCV7 00:00:00 [place] [facility] (Prevnar7) [facility] DTP 2003-01-16 Completed University of 00:00:00 [facility] HIB 4 Dose Schedule 2003-01-16 Completed Unive rsity of 00:00:00 [facility] Polio (IPV/OPV) 2003-01-16 Completed Universit y of 00:00:00 [facility] Pneumococcal 7 2003-01-16 Completed University of Conjugate, PCV7 00:00:00 [place] [facility] (Prevnar7) [facility] DTP 2003-01-16 Completed University of 00:00:00 [facility] HIB 4 Dose Schedule 2003-01-16 Completed Unive rsity of 00:00:00 [facility] Polio (IPV/OPV) 2003-01-16 Completed Universit y of 00:00:00 [facility] Pneumococcal 7 2003-01-16 Completed University of Conjugate, PCV7 00:00:00 [place] [facility] (Prevnar7) [facility] DTP 2003-01-16 Completed University of 00:00:00 [facility] HIB 4 Dose Schedule 2003-01-16 Completed Unive rsity of 00:00:00 [facility] Polio (IPV/OPV) 2003-01-16 Completed Universit y of 00:00:00 [facility] Pneumococcal 7 2003-01-16 Completed University of Conjugate, PCV7 00:00:00 [place] [facility] (Prevnar7) [facility] DT 2003-01-16 Completed University of 00:00:00 [facility] HIB 4 Dose Schedule 2003-01-16 Completed Unive rsity of 00:00:00 [facility] Polio (IPV/OPV) 2003-01-16 Completed Universit y of 00:00:00 [facility] Pneumococcal 7 2003-01-16 Completed University of Conjugate, PCV7 00:00:00 [place] [facility] (Prevnar7) [facility] DTP 2002 Completed University of 00:00:00 [facility] HIB 4 Dose Schedule 2002 Completed Unive rsity of 00:00:00 [facility] Hep B, Adol or Pedi 2002 Completed Unive rsity of Dosage 00:00:00 [facility] Polio (IPV/OPV) 2002 Completed Universit y of 00:00:00 [facility] DTP 2002 Completed University of 00:00:00 [facility] HIB 4 Dose Schedule 2002 Completed Unive rsity of 00:00:00 [facility] Hep B, Adol or Pedi 2002 Completed Unive rsity of Dosage 00:00:00 [facility] Polio (IPV/OPV) 2002 Completed Universit y of 00:00:00 [facility] DTP 2002 Completed University of 00:00:00 [facility] HIB 4 Dose Schedule 2002 Completed Unive rsity of 00:00:00 [facility] Hep B, Adol or Pedi 2002 Completed Unive rsity of Dosage 00:00:00 [facility] Polio (IPV/OPV) 2002 Completed Universit y of 00:00:00 [facility] DTP 2002 Completed University of 00:00:00 [facility] HIB 4 Dose Schedule 2002 Completed Unive rsity of 00:00:00 [facility] Hep B, Adol or Pedi 2002 Completed Unive rsity of Dosage 00:00:00 [facility] Polio (IPV/OPV) 2002 Completed Universit y of 00:00:00 [facility] DTP 2002 Completed University of 00:00:00 [facility] HIB 4 Dose Schedule 2002 Completed Unive rsity of 00:00:00 [facility] Hep B, Adol or Pedi 2002 Completed Unive rsity of Dosage 00:00:00 [facility] Polio (IPV/OPV) 2002 Completed Universit y of 00:00:00 [facility] DTP 2002 Completed University of 00:00:00 [facility] [place] [facility] HIB 4 Dose Schedule 2002 Completed Unive rsity of 00:00:00 [facility] [place] [facility] Hep B, Adol or Pedi 2002 Completed Unive rsity of Dosage 00:00:00 [facility] Polio (IPV/OPV) 2002 Completed Universit y of 00:00:00 [facility] DTP 2002 Completed University of 00:00:00 [facility] HIB 4 Dose Schedule 2002 Completed Unive rsity of 00:00:00 [facility] Hep B, Adol or Pedi 2002 Completed Unive rsity of Dosage 00:00:00 [facility] Polio (IPV/OPV) 2002 Completed Universit y of 00:00:00 [facility] DTP 2002 Completed University of 00:00:00 [facility] HIB 4 Dose Schedule 2002 Completed Unive rsity of 00:00:00 [facility] Hep B, Adol or Pedi 2002 Completed Unive rsity of Dosage 00:00:00 [facility] Polio (IPV/OPV) 2002 Completed Universit y of 00:00:00 [facility] DTP 2002 Completed University of 00:00:00 [facility] HIB 4 Dose Schedule 2002 Completed Unive rsity of 00:00:00 [facility] Hep B, Adol or Pedi 2002 Completed Unive rsity of Dosage 00:00:00 [facility] Polio (IPV/OPV) 2002 Completed Universit y of 00:00:00 [facility] DTP 2002 Completed University of 00:00:00 [facility] HIB 4 Dose Schedule 2002 Completed Unive rsity of 00:00:00 [facility] Hep B, Adol or Pedi 2002 Completed Unive rsity of Dosage 00:00:00 [facility] Polio (IPV/OPV) 2002 Completed Universit y of 00:00:00 [facility] DTP 2002 Completed University of 00:00:00 [facility] HIB 4 Dose Schedule 2002 Completed Unive rsity of 00:00:00 [facility] Hep B, Adol or Pedi 2002 Completed Unive rsity of Dosage 00:00:00 [facility] Polio (IPV/OPV) 2002 Completed Universit y of 00:00:00 [facility] DTP 2002 Completed University of 00:00:00 [facility] HIB 4 Dose Schedule 2002 Completed Unive rsity of 00:00:00 [facility] Hep B, Adol or Pedi 2002 Completed Unive rsity of Dosage 00:00:00 [facility] Polio (IPV/OPV) 2002 Completed Universit y of 00:00:00 [facility] DTP 2002 Completed University of 00:00:00 [facility] HIB 4 Dose Schedule 2002 Completed Unive rsity of 00:00:00 [facility] Hep B, Adol or Pedi 2002 Completed Unive rsity of Dosage 00:00:00 [facility] Polio (IPV/OPV) 2002 Completed Universit y of 00:00:00 [facility] DTP 2002 Completed University of 00:00:00 [facility] HIB 4 Dose Schedule 2002 Completed Unive rsity of 00:00:00 [facility] Hep B, Adol or Pedi 2002 Completed Unive rsity of Dosage 00:00:00 [facility] Polio (IPV/OPV) 2002 Completed Universit y of 00:00:00 [facility] DTP 2002 Completed University of 00:00:00 [facility] HIB 4 Dose Schedule 2002 Completed Unive rsity of 00:00:00 [facility] Hep B, Adol or Pedi 2002 Completed Unive rsity of Dosage 00:00:00 [facility] Polio (IPV/OPV) 2002 Completed Universit y of 00:00:00 [facility] DTP 2002 Completed University of 00:00:00 [facility] HIB 4 Dose Schedule 2002 Completed Unive rsity of 00:00:00 [facility] Hep B, Adol or Pedi 2002 Completed Unive rsity of Dosage 00:00:00 [facility] Polio (IPV/OPV) 2002 Completed Universit y of 00:00:00 [facility] DTP 2002 Completed University of 00:00:00 [facility] HIB 4 Dose Schedule 2002 Completed Unive rsity of 00:00:00 [place] [facility] Hep B, Adol or Pedi 2002 Completed Unive rsity of Dosage 00:00:00 [facility] Polio (IPV/OPV) 2002 Completed Universit y of 00:00:00 [facility] DTP 2002 Completed University of 00:00:00 [facility] HIB 4 Dose Schedule 2002 Completed Unive rsity of 00:00:00 [facility] [place] [facility] Hep B, Adol or Pedi 2002 Completed Unive rsity of Dosage 00:00:00 [facility] Polio (IPV/OPV) 2002 Completed Universit y of 00:00:00 [facility] DTP 2002 Completed University of 00:00:00 [facility] HIB 4 Dose Schedule 2002 Completed Unive rsity of 00:00:00 [facility] [place] [facility] Hep B, Adol or Pedi 2002 Completed Unive rsity of Dosage 00:00:00 [facility] Polio (IPV/OPV) 2002 Completed Universit y of 00:00:00 [facility] DTP 2002 Completed University of 00:00:00 [facility] HIB 4 Dose Schedule 2002 Completed Unive rsity of 00:00:00 [facility] Hep B, Adol or Pedi 2002 Completed Unive rsity of Dosage 00:00:00 [facility] Polio (IPV/OPV) 2002 Completed Universit y of 00:00:00 [facility] [place] [facility] Hep B, Adol or Pedi 2002 Completed Unive rsity of Dosage 00:00:00 [facility] Hep B, Adol or Pedi 2002 Completed Unive rsity of Dosage 00:00:00 [facility] [place] [facility] Hep B, Adol or Pedi 2002 Completed Unive rsity of Dosage 00:00:00 [facility] Hep B, Adol or Pedi 2002 Completed Unive rsity of Dosage 00:00:00 [facility] Hep B, Adol or Pedi 2002 Completed Unive rsity of Dosage 00:00:00 [facility] Hep B, Adol or Pedi 2002 Completed Unive rsity of Dosage 00:00:00 [facility] Hep B, Adol or Pedi 2002 Completed Unive rsity of Dosage 00:00:00 [facility] Hep B, Adol or Pedi 2002 Completed Unive rsity of Dosage 00:00:00 [facility] Hep B, Adol or Pedi 2002 Completed Unive rsity of Dosage 00:00:00 [facility] [place] [facility] Hep B, Adol or Pedi 2002 Completed Unive rsity of Dosage 00:00:00 [facility] [place] [facility] Hep B, Adol or Pedi 2002 Completed Unive rsity of Dosage 00:00:00 [facility] Hep B, Adol or Pedi 2002 Completed Unive rsity of Dosage 00:00:00 [facility] [place] [facility] Hep B, Adol or Pedi 2002 Completed Unive rsity of Dosage 00:00:00 [facility] Hep B, Adol or Pedi 2002 Completed Unive rsity of Dosage 00:00:00 [facility] [place] [facility] Hep B, Adol or Pedi 2002 Completed Unive rsity of Dosage 00:00:00 [facility] [place] [facility] Hep B, Adol or Pedi 2002 Completed Unive rsity of Dosage 00:00:00 [facility] [place] [facility] Hep B, Adol or Pedi 2002 Completed Unive rsity of Dosage 00:00:00 [facility] [place] [facility] Hep B, Adol or Pedi 2002 Completed Unive rsity of Dosage 00:00:00 [facility] [place] [facility] Hep B, Adol or Pedi 2002 Completed Unive rsity of Dosage 00:00:00 [facility] [place] [facility] Hep B, Adol or Pedi 2002 Completed Unive rsity of Dosage 00:00:00 [facility] Vital Signs Vital Name Observation Time Observation Value Comments Source Systolic blood 2022-04-11 20:22:00 124 mm[Hg] Univer sity of pressure [facility] Diastolic blood 2022-04-11 20:22:00 81 mm[Hg] Unive rsity of pressure [facility] Heart rate 2022-04-11 20:22:00 59 /min [facility] Body temperature 2022-04-11 20:22:00 36.44 Talya [facility] rate 2022-04-11 20:22:00 18 /min [facility] Body height 2022-04-11 20:22:00 162.6 cm [facility] Body weight 2022-04-11 20:22:00 56.246 kg [facility] BMI 2022-04-11 20:22:00 21.28 kg/m2 Universi ty of [place] [facility] Systolic blood 2022-03-20 14:35:00 125 mm[Hg] Univer sity of pressure [facility] [place] [facility] Diastolic blood 2022-03-20 14:35:00 77 mm[Hg] Unive rsity of pressure [facility] Heart rate 2022-03-20 14:35:00 65 /min Universi ty of [place] [facility] Body temperature 2022-03-20 14:35:00 36.89 Talya Univ ersity of [place] [facility] Oxygen saturation in 2022-03-20 14:35:00 100 /min University of Arterial blood by [place] [facility] Respiratory rate 2022-03-20 09:19:00 16 /min Univ ersity of [place] [facility] Systolic blood 2022-03-14 21:40:00 120 mm[Hg] Univer sity of pressure [facility] [place] [facility] Diastolic blood 2022-03-14 21:40:00 67 mm[Hg] Unive rsity of pressure [facility] [place] [facility] Heart rate 2022-03-14 21:40:00 94 /min [facility]i ty of [place] [facility] Body temperature 2022-03-14 21:40:00 36.78 Talya Univ ersity of [place] [facility] Respiratory rate 2022-03-14 21:40:00 16 /min Univ ersity of [place] [facility] Body height 2022-03-14 21:40:00 162.6 cm [facility]i [facility] of [place] [facility] Body weight 2022-03-14 21:40:00 66.996 kg [facility]i [facility] of [place] [facility] BMI 2022-03-14 21:40:00 25.35 kg/m2 [facility] of [place] [facility] Heart rate 2022-03-03 19:45:00 85 /min [facility]i ty of [place] [facility] Oxygen saturation in 2022-03-03 19:45:00 99 /min University of Arterial blood by [place] [employer] P[facility]xim[facility] Systolic blood 2022-03-03 17:45:00 98 mm[Hg] Univer sity of pressure [facility] [place] [facility] Diastolic blood 2022-03-03 17:45:00 50 mm[Hg] Unive rsity of pressure [facility] [place] [facility] Respiratory rate 2022-03-03 17:45:00 18 /min Univ ersity of [place] [facility] Body temperature 2022-03-03 15:58:00 37.22 Talya Univ ersity of [place] [facility] Body height 2022-03-03 15:58:00 162.6 cm Universi ty [facility] [place] [facility] Body weight 2022-03-03 15:30:00 65.953 kg [facility] [place] [facility] BMI 2022-03-03 15:30:00 24.96 kg/m2 [facility] [place] [facility] Systolic blood 2022-02-06 13:49:00 112 mm[Hg] Univer sity of pressure [facility] [place] [facility] Diastolic blood 2022-02-06 13:49:00 62 mm[Hg] Unive rsity of pressure [facility] [place] [facility] Heart rate 2022-02-06 13:49:00 89 /min [facility]i [facility] of [place] [facility] Body temperature 2022-02-06 13:49:00 36.61 Talya Univ ersity of [place] [facility] Respiratory rate 2022-02-06 13:49:00 18 /min Univ ersity of [place] [facility] Body weight 2022-02-06 13:49:00 64.728 kg [facility]i [facility] [place] [facility] BMI 2022-02-06 13:49:00 23.75 kg/m2 [facility] [place] [facility] Systolic blood 2022-01-30 14:39:00 107 mm[Hg] Univer sity of pressure [facility] [place] [facility] Diastolic blood 2022-01-30 14:39:00 64 mm[Hg] Unive rsity of pressure [facility] [place] [facility] Heart rate 2022-01-30 14:39:00 77 /min [facility] [place] [facility] Body temperature 2022-01-30 14:39:00 36.39 Talya Univ ersity of [place] [facility] Respiratory rate 2022-01-30 14:39:00 20 /min Univ ersity of [place] [facility] Body height 2022-01-30 14:39:00 165.1 cm [facility] [place] [facility] Body weight 2022-01-30 14:39:00 63.685 kg [facility]i [facility] [place] [facility] BMI 2022-01-30 14:39:00 23.36 kg/m2 [facility] [place] [facility] Systolic blood 2022-01-23 21:00:00 112 mm[Hg] Univer sity of pressure [place] [facility] Diastolic blood 2022-01-23 21:00:00 66 mm[Hg] Unive rsity of pressure [place] [facility] Respiratory rate 2022-01-23 21:00:00 18 /min Univ ersity of [place] [facility] Body weight 2022-01-23 21:00:00 62.007 kg [facility] [place] [facility] Systolic blood 2022-01-15 23:30:00 110 mm[Hg] Univer sity of pressure [facility] [place] [facility] Diastolic blood 2022-01-15 23:30:00 63 mm[Hg] Unive rsity of pressure [facility] [place] [facility] Heart rate 2022-01-15 23:30:00 82 /min Universi ty of [facility] Oxygen saturation in 2022-01-15 23:30:00 99 /min University Arterial blood by [facility] Pulse oximetry Branch Body weight 2022-01-15 22:00:00 62 kg [facility]i ty [facility] [place] [facility] BMI 2022-01-15 22:00:00 22.75 kg/m2 Universi ty of [facility] Body temperature 2022-01-15 21:35:00 37 Talya Univ ersity of [place] [facility] Respiratory rate 2022-01-15 21:35:00 18 /min Univ ersity of [facility] Body height 2022-01-15 21:35:00 165.1 cm Universi ty of [facility] Systolic blood 2022-01-10 14:49:00 103 mm[Hg] Univer sity of pressure [facility] [place] [facility] Diastolic blood 2022-01-10 14:49:00 70 mm[Hg] Unive rsity of pressure [facility] [place] [facility] Heart rate 2022-01-10 14:49:00 86 /min [facility] [place] [facility] Body temperature 2022-01-10 14:49:00 36.78 Talya Univ ersity of [facility] Respiratory rate 2022-01-10 14:49:00 16 /min Univ ersity of [place] [facility] Body height 2022-01-10 14:49:00 165.1 cm [facility] [place] [facility] Body weight 2022-01-10 14:49:00 62.007 kg [facility] [place] [facility] BMI 2022-01-10 14:49:00 22.75 kg/m2 Universi ty of [facility] Procedures Procedure Date / Time Performing Clinician Source Performed CBC WITH DIFF 2022-03-19 09:47:00 Tanvir Wynne [facility] HB -MATERNAL 2022-03-19 09:45:00 Tanvir Wynne [facility] HEMORRHAGE SCREEN [facility] CENTRAL NEURAXIAL BLOCK 2022-03-19 02:01:14 Lyndon Jaramillo [facility] PREPARE PACKED RBC 2022-03-18 16:12:40 Tanvir Wynne [facility] CBC WITH DIFF 2022-03-18 13:25:00 Tanvir Wynne [facility] HEPATITIS B SURFACE 2022-03-18 13:25:00 Tanivr Wynne [facility] ANTI-D R/O PANEL 2022-03-18 13:25:00 Tanvir Wynne [facility] HB ABO GROUPING 2022-03-18 13:25:00 [facility] Salavdor [facility] RHO (D) IMMUNE GLOBULIN 2022-03-18 13:25:[address] [facility] ADC OR YURI ONLY - 2022-03-18 13:25:00 Tanvir Wynne [facility] HIV 1/2 AG-AB WITH 2022-03-18 13:25:00 Tanvir Wynne [facility] CBC WITH DIFF 2022-03-14 22:14:00 Tr Eaton [facility] GROUP B STREPTOCOCCUS BY 2022-03-14 22:14:00 Tr Eaton [facility] POCT URINALYSIS 2022-03-14 00:00:00 [facility] PREPARE PACKED RBC 2022-03-03 20:45:32 Tanvir Wynne [facility] US PELVIS > 14 2022-03-03 20:10:00 Tanvir Wynne [facility] CBC WITH DIFF 2022-03-03 17:28:00 Tanvir Wynne [facility] HB ABO GROUPING 2022-03-03 17:25:00 Tanvir [facility]ne [facility] URINALYSIS 2022-03-03 16:04:00 Tico Tanvir [facility] o f [facility] ADC ONLY - FERN TEST 2022-03-03 16:04:00 Tanvir Wynne [facility] EXTRA TUBE URINE CULTURE 2022-03-03 16:04:00 Tanvir Wynne [facility] CONSENT/REFUSAL FOR 2022-03-03 15:15:48 Doctor Unassigned, No Un iversity [facility] DIAGNOSIS AND TREATMENT Name [facility] POCT URINALYSIS 2022-02-06 13:54:00 Stuart [facility] POCT URINALYSIS 2022-01-23 21:13:00 Stuart [facility] HB ABO GROUPING 2022-01-23 21:05:00 [facility] HIV 1/2 AG-AB WITH 2022-01-23 21:05:00 Stuart Amor [facility] TDAP VACCINE, >11 YRS, 2022-01-23 20:57:06 [facility] 2022-01-15 23:08:00 Marlen Brown [facility] Encounters Start End Encounter Admission Attending Care Care Encounter Source Date/Time Date/Time Type Type Clinicians Facility Department ID 2022-01-15 Outpatient P [facility] [id number] [facility] P [facility] [id number] [facility] [id number] [facility] P [facility] [id number] Univers 22:08:[address] [facility] 2022-05-02 2022-05-02 Outpatient R AKINSIPE, [facility] [id number] Univers 12:45:00 12:45:00 [facility] 2022-04-11 2022-04-11 Routine Akinsipe, [facility] [id number] Univers 14:00:00 14:15:00 Tr C MATCH MARKER [id number] ity of Visit REGIONAL [id number] Vlad as MATERNAL [id number] Med ical & CHILD [address] [place] [address] 2022-04-11 2022-04-11 Outpatient R AKINSIPE, [facility] [id number] Univers 14:00:00 14:00:00 TR ity o f [facility] 2022-03-18 2022-03-20 Hospital Tanvir Wynne [facility] [id number] Univers 06:33:00 10:30:00 Encounter Salvador PERSON [id number] ity of [place] [id number] [facility] [id number] [address] 2022-03-18 2022-03-18 Anesthesia Carol Sarmiento [facility] [id number] Univers 07:48:00 19:59:00 Event Lyndon Jaramillo [facility] 350.1.13.10 ity of [place] 4.2.7.2.686 [facility] [phone] [address] 2022-03-18 2022-03-18 Outpatient R AKINSIPE, [facility] [id number] Univers 13:45:00 13:45:00 TR ity o f [facility] 2022-03-18 2022-03-18 Outpatient R AKINSIPE, [facility] MARY [id number] Univers 13:45:00 13:45:00 TR ity o f [facility] 2022-03-17 2022-03-17 [facility]phone [facility] 1.2.840.114 [id number] Univers 00:00:00 00:00:[address] MATCH MARKER 350.1.13.10 ity of REGIONAL 4.2.7.2.686 Vlad as MATERNAL [phone] [facility] & CHILD [address] [place] [address] 2022-03-17 2022-03-17 Telephone [facility] 1.2.840.114 [id number] Univers 00:00:00 00:00:00 Tr C MATCH MARKER 350.1.13.10 ity of [facility] 4.2.7.2.686 Vlad as MATERNAL [phone] [facility] & [address] 2022-03-14 2022-03-14 [facility] [id number] Univers 15:30:00 16:14:14 TR ity o f [facility] 2022-03-14 2022-03-14 Routine [facility] 1.2.129.529 [id number] Univers 15:30:00 16:14:14 Tr C MATCH MARKER 350.1.13.10 ity of Visit [facility] 4.2.7.2.686 Vlad as MATERNAL [phone] [facility] & CHILD [address] [place] [address] 2022-03-03 2022-03-03 Outpatient R MT [facility] [id number] Univers 15:15:00 15:15:00 ROSHUNDA ity o f [facility] 2022-03-03 2022-03-03 Outpatient P TANVIR WYNNE [facility] MARY [id number] Univers 09:29:00 14:50:00 ity of [facility] 2022-03-03 2022-03-03 [facility] Tanvir Wynne [facility] 1.2.840.114 [id number] Univers 09:29:00 14:50:00 Encounter Salvador PERSON 350.1.13.10 ity of [place] 4.2.7.2.686 [place] [facility] [phone] [facility] [address] 2022-03-03 2022-03-03 Orders Doctor MARGOT 1.2.840.114 [id number] Univers 00:00:00 00:00:00 Only Unassigned, [place] 350.1.13.10 ity of [place] [facility] 4.2.7.2.686 Vlad as [phone] [facility] [address] 2022-02-27 2022-02-27 Hematologist Ultrasound[facility] 1.2 .840.114 [id number] Univers 08:00:00 08:45:00 Visit Deanne Guerrero Christie MATCH MARKER 350.1. 13.10 ity of REGIONAL 4.2.7.2.686 Vlad as MATERNAL [phone] [facility] & CHILD [address] [facility] 2022-02-27 2022-02-27 Outpatient P CESAR [facility] [id number] Univers 08:00:00 08:00:[address] [facility] 2022-02-25 2022-02-25 Outpatient R TANVIR, [facility] [id number] Univers 07:45:00 07:45:[address] [facility] 2022-02-20 2022-02-20 Outpatient R DEE [facility] [id number] Univers 10:30:00 10:30:[address] [facility] 2022-02-06 2022-02-06 Outpatient R PRISCILA [facility] [id number] Univers 09:00:00 09:17:38 SANDRITA boyd [facility] 2022-02-06 2022-02-06 Routine Provider, Emre Temp [facility] 1 .2.840.114 [id number] Univers 09:00:00 09:17:38 Sandrita Medina MATCH MARKER 350.1.13.10 ity of Visit REGIONAL 4.2.7.2.686 Vlad as MATERNAL [phone] [facility] & [address] 2022-01-30 2022-01-30 Nurse Visit, Emre Nurse [facility] 1.2 .840.114 [id number] Univers 09:30:00 09:56:17 Visit Stuart Amor MATCH MARKER 350.1.13.10 ity of REGIONAL 4.2.7.2.686 Vlad as MATERNAL [phone] [facility] & CHILD [address] [place] [address] 2022-01-30 2022-01-30 Outpatient Devonte AMOR [facility] [id number] Univers 09:30:00 09:30:00 STUART boyd o f [facility] 2022-01-23 2022-01-23 [facility] [id number] Univers 15:15:00 16:50:02 ROSCAREYNDA ity o f [facility] 2022-01-23 2022-01-23 [facility]ine [facility] 1.2.840.114 [id number] Univers 15:15:00 16:50:02 Roshunda R MATCH MARKER 350.1.13.10 ity of Visit REGIONAL 4.2.7.2.686 Vlad as MATERNAL [phone] [facility] ical & CHILD [address] [place] [address] 2022-01-20 2022-01-20 [facility] [id number] Univers 15:45:00 15:45:00 CODYNDA ity o [facility] 2022-01-17 2022-01-17 Telephone [facility] 1.2.755.081 [id number] Univers 00:00:00 00:00:00 Roscareynda R MATCH MARKER 350.1.13.10 ity of [facility] 4.2.7.2.686 Vlad as MATERNAL [phone] [facility] & [address] 2022-01-16 2022-01-16 [facility] [id number] Univers 12:45:00 12:45:00 CODYNDA ity o [facility] 2022-01-15 2022-01-15 Outpatient P LISANDRO BROOKS [facility] MARY [id number] Univers 16:18:00 20:29:00 LISANDRO BROOKS ity [facility] 2022-01-15 2022-01-15 [facility] MARGOT Brooks 1.2.840.114 [id number] Univers 16:18:00 20:29:00 Encounter Lisandro BOJORQUEZ 350.1.13.[address] [facility] 4.2.7.2.686 Vlad as [phone] [address] 2022-01-15 2022-01-15 Telephone [facility] 1.2.059.006 [id number] Univers 00:00:00 00:00:00 Roscareynda R MATCH MARKER 350.1.13.10 ity of REGIONAL 4.2.7.2.686 Vlad as MATERNAL [phone] [facility] ical & CHILD [address] [place] [address] 2022-01-13 2022-01-13 Javon Amor [facility] 1.2.840.114 [id number] Univers 00:00:00 00:00:00 Stuart R MATCH MARKER 350.1.13.10 ity of [facility] 4.2.7.2.686 Vlad as MATERNAL [phone] [facility] ical & CHILD [address] [place] [address] 2022-01-10 2022-01-10 Nurse Visit, Emre Nurse [facility] 1.2 .840.114 [id number] Univers 09:30:00 09:54:53 Visit Marko Harrison MATCH MARKER 350.1.13.10 ity of REGIONAL 4.2.7.2.686 Vlad as MATERNAL [phone] [facility] & CHILD [address] [place] [address] 2022-01-10 2022-01-10 Outpatient R ROBERTO [facility] [id number] Univers 09:30:00 09:30:00 MARKO ity of [facility] 2022-01-10 2022-01-10 Hematologist Ultrasound, Wojciech [facility] 1.2 .840.114 [id number] Univers 08:00:00 08:45:00 Visit Marko Harrison MATCH MARKER 350.1.13.10 ity of [facility] 4.2.7.2.686 Vlad as MATERNAL [phone] [facility] [address] [place] [address] 2022-01-09 2022-01-09 Outpatient R [facility] [id number] Univers 09:30:00 09:30:00 ity of [facility] 2022-01-09 2022-01-09 Outpatient R MT [facility] [id number] Univers 09:30:00 09:30:00 MUKESHA deb o f [facility] 2022-01-02 2022-01-02 Outpatient Devonte AMOR [facility] [id number] Univers 09:00:00 09:59:56 STUART brary o f [facility] 2022-01-02 2022-01-02 [facility] 1.2.840.114 [id number] Univers 09:00:00 09:59:56 Stuart R MATCH MARKER 350.1.13.10 ity of Visit REGIONAL 4.2.7.2.686 Vlad as MATERNAL [phone] [facility] ical & CHILD [address] [place] [address] 2022-01-02 2022-01-02 Outpatient R MT [facility] [id number] Univers 09:00:00 09:00:00 HAYDEECAREYNDA ity o f [facility] 2021-12-26 2021-12-26 Outpatient R MT [facility] [id number] Univers 09:30:00 09:30:00 ROSCAREYNDA ity o f [facility] 2021-12-25 2021-12-25 Outpatient P [facility] [id number] Univers 09:00:00 09:00:00 ity of [facility] 2021-12-19 2021-12-19 Outpatient R MT [facility] [id number] Univers 09:00:00 09:11:55 CODYNDA ity o paris [facility] 2021-12-19 2021-12-19 Nurse Visit, Located Within [facility] Nurse [facility] 1.2 .840.114 [id number] Univers 09:00:00 09:11:55 Visit [facility] Whitney MATCH MARKER 350.1.13.10 ity of REGIONAL 4.2.7.2.686 Vlad as MATERNAL [phone] [facility] & [address] 2021-12-19 2021-12-19 Outpatient R [facility] [id number] Univers 09:00:00 09:00:00 ity [facility] 2021-12-17 2021-12-17 Abstract Mt [facility] 1.2.840.114 [id number] Univers 00:00:00 00:00:00 Mukesha Devonte MATCH MARKER 350.1.13.10 ity of REGIONAL 4.2.7.2.686 Vlad as MATERNAL [id number] [facility] [address] [place] [address] 2021-12-162021-12-16 Hematologist Ultrasound, Dixon-Ghassan [facility] 1.2 .840.114 [id number] Univers 08:45:00 09:02:56 Visit Roberto Marko MATCH MARKER 350.1.13.10 ity of REGIONAL 4.2.7.2.686 Vlad as MATERNAL [phone] [facility] & CHILD [address] [place] [address] 2021-12-16 2021-12-16 Outpatient P [facility] [id number] Univers 09:00:00 [facility]-12-16 2021-12-16 Outpatient P ROBERTO [facility] [id number] Univers 08:45:00 08:45:[address] [facility] 2021-12-12 2021-12-12 [facility] 1.2.840.114 [id number] Univers 11:00:00 11:00:00 Roshunda R MATCH MARKER 350.1.13.10 ity of Visit REGIONAL 4.2.7.2.686 Vlad as MATERNAL [phone] [facility] & [address] 2021-12-12 2021-12-12 [facility] [id number] Univers 10:30:00 10:30:00 ROSHUNDA ity o f [facility] 2021-12-09 2021-12-09 Outpatient R MT [facility] [id number] Univers 09:30:00 09:30:00 ROSHUNDA ity o f [facility] 2021-12-06 2021-12-06 Outpatient R MT [facility] [id number] Univers 10:00:00 10:00:00 ROSHUNDA ity o f [facility] 2021-12-06 2021-12-06 Outpatient P [facility] [id number] Univers 09:00:00 09:00:00 [facility] 2021-12-02 2021-12-02 [facility] 1.2.840.114 [id number] Univers 00:00:00 00:00:00 Roshunda R MATCH MARKER 350.1.13.10 ity of REGIONAL 4.2.7.2.686 Vlad as MATERNAL [phone] [facility] ical & CHILD [address] [place] [address] 2021-12-02 2021-12-02 Telephone Mt [facility] 1.2.189.876 [id number] Univers 00:00:00 00:00:00 Rosdca R MATCH MARKER 350.1.13.10 ity of [facility] 4.2.7.2.686 Vlad as MATERNAL [phone] [facility] [address] [place] [address] 2021-11-29 2021-11-29 Outpatient R [facility] [id number] Univers 10:30:00 10:30:00 ity [facility] 2021-11-29 2021-11-29 Outpatient R CESAR [facility] [id number] Univers 10:30:00 10:30:00 CHASEY ity [facility] 2021-11-29 2021-11-29 Nurse Visit, Emre Nurse [facility] 1.2 .840.114 [id number] Univers 10:30:00 10:30:00 Visit Deanne Guerrero Christie MATCH MARKER 350.1. 13.10 ity of [facility] 4.2.7.2.686 Vlad as MATERNAL [id number] [facility] [address] [place] [address] 2021-11-29 2021-11-29 Hematologist Ultrasound, Wojciech [facility] 1.2 .840.114 [id number] Univers 09:00:00 10:00:00 Visit Deanne Guerrero Christie MATCH MARKER 350.1. 13.10 ity of [facility] 4.2.7.2.686 Vlad as MATERNAL [id number] [facility] ical & CHILD [address] [facility] 2021-11-29 2021-11-29 Outpatient P [facility] [id number] Univers 09:00:00 09:00:00 ity [facility] 2021-11-27 2021-11-27 Javon Amor [facility] 1.2.840.114 [id number] Univers 00:00:00 00:00:00 Mukesha R MATCH MARKER 350.1.13.10 ity of REGIONAL 4.2.7.2.686 Vlad as MATERNAL [id number] [facility] [address] [place] [address] 2021-11-22 2021-11-22 Outpatient R JAMAL [facility] [id number] Univers 09:45:00 10:07:50 [facility] 2021-11-22 2021-11-22 Nurse Visit, Emre Nurse [facility] 1.2 .840.114 [id number] Univers 09:45:00 10:07:50 Visit Brendan Berry Devonte MATCH MARKER 350.1.13.10 ity of [facility] 4.2.7.2.686 Vlad as MATERNAL [phone] [facility] & CHILD [address] [place] [address] 2021-11-22 2021-11-22 Hematologist Ultrasound, [facility] 1.[id number] [facility] 09:15:00 09:46:52 Visit Brendan Berry Devonte MATCH MARKER 350.1.13.10 ity of [facility] 4.2.7.2.686 Vlad as MATERNAL [phone] [facility] [address] [place] [address] 2021-11-22 2021-11-22 Outpatient R [facility] [id number] Univers 09:45:00 09:45:00 ity [facility] 2021-11-22 2021-11-22 Outpatient P [facility] [id number] Univers 09:00:00 09:00:00 ity [facility] 2021-11-15 2021-11-15 Nurse Visit, Emre Nurse [facility] 1.2 .840.114 [id number] Univers 08:00:00 10:15:13 Visit Nasim Medrano MATCH MARKER 350.1.13.10 ity of [facility] 4.2.7.2.686 Vlad as MATERNAL [id number] [facility] & CHILD [address] [place] [address] 2021-11-15 2021-11-15 Hematologist Ultrasound, [facility] 1.2 .840.114 [id number] Univers 09:15:00 09:45:00 Visit Nasim Medrano MATCH MARKER 350.1.13.10 ity of REGIONAL 4.2.7.2.686 Vlad as MATERNAL [phone] [facility] ical & CHILD [address] [facility] 2021-11-15 2021-11-15 Outpatient P [facility] [id number] Univers 09:30:00 09:30:00 ity [facility] 2021-11-15 2021-11-15 Outpatient R NASIM MEDRANO [facility] [id number] Univers 08:00:00 08:00:00 [facility] 2021-11-15 2021-11-15 [facility] 1.2.840.114 [id number] Univers 00:00:00 00:00:00 Roshunda R MATCH MARKER 350.1.13.10 ity of REGIONAL 4.2.7.2.686 Vlad as MATERNAL [id number] [facility] CHILD [address] [place] [address] 2021-11-14 2021-11-14 [facility] 1.2.840.114 [id number] Univers 11:00:00 11:15:00 Roshunda R MATCH MARKER 350.1.13.10 ity of Visit REGIONAL 4.2.7.2.686 Vlad as MATERNAL [id number] [facility] CHILD [address] [place] [address] 2021-11-14 2021-11-14 [facility] [id number] Univers 11:00:00 11:00:00 ROSHUNDA ity o f [facility] 2021-11-14 2021-11-14 [facility]patient [facility] [id number] Univers 11:00:00 11:00:00 ROSHUNDA ity o f [facility] 2021-11-11 2021-11-11 [facility] 1.2.840.114 [id number] Univers 00:00:00 00:00:00 Roshunda R MATCH MARKER 350.1.13.10 ity of REGIONAL 4.2.7.2.686 Vlad as MATERNAL [id number] [facility] ical & CHILD [address] [place] [address] 2021-11-08 2021-11-08 Nurse Visit, Located Within [facility] Nurse [facility] 1.2 .840.114 [id number] Univers 08:30:00 08:45:00 Visit Stuart Amor MATCH MARKER 350.1.13.10 ity of [facility] 4.2.7.2.686 Vlad as MATERNAL [phone] [facility] ical & CHILD [address] [facility] 2021-11-08 2021-11-08 [facility] [id number] Univers 08:30:00 08:30:00 ROSZHANNA boyd o paris [facility] 2021-11-08 2021-11-08 Outpatient R MT [facility] [id number] Univers 08:30:00 08:30:00 ROSZHANNA toledo [facility] 2021-11-01 2021-11-01 Outpatient R MT [facility] [id number] Univers 13:30:00 13:30:00 HAYDEENIKI toledo [facility] 2021-11-01 2021-11-01 [facility] 1.2 .840.114 [id number] Univers 13:30:00 13:30:00 Visit Stuart Amor MATCH MARKER 350.1.13.10 ity of [facility] 4.2.7.2.686 Vlad as MATERNAL [id number] [facility] [address] [place] [address] 2021-11-01 2021-11-01 H[facility]ologist [facility], [facility] 1.2 .840.114 [id number] Univers 11:30:00 12:00:00 Visit Sergio Vivar MATCH MARKER 350.1.13.10 ity of [facility] 4.2.7.2.686 Vlad as MATERNAL [id number] [facility] [address] [facility] 2021-10-25 2021-10-25 Outpatient P [facility] [id number] Univers 08:30:00 08:30:00 ity of [facility] 2021-10-17 2021-10-17 Telephone eNgro [facility] 1.2.840.114 [id number] Univers 00:00:00 00:00:00 [facility] 350.1.13.10 it y of [facility] 4.2.7.2.686 [facility] [phone] [address] ([facility]) 2021-10-16 2021-10-16 Outpatient R MT [facility] [id number] Univers 10:30:00 11:28:37 ROSHUNDA ity o f [facility] 2021-10-16 2021-10-16 [facility] 1.2.840.114 [id number] Univers 10:30:00 11:28:37 Mukesha R MATCH MARKER 350.1.13.10 ity of Visit [facility] 4.2.7.2.686 Vlad as MATERNAL [phone] Med ical & CHILD [address] [place] [address] 2021-10-05 2021-10-05 Emergency X PHIL [facility] ERT [id number] Univers 18:22:00 21:51:00 ABAD ity [facility] 2021-10-05 2021-10-05 Emergency Phil [facility] 1.2.141.185 [id number] Univers 18:22:00 21:51:00 [facility] 350.1.13.10 i ty of [place] 4.2.7.2.686 [facility] [phone] [facility] [address] 2021-10-05 2021-10-05 Orders Doctor FROST 1.2.840.114 [id number] Univers 00:00:00 00:00:00 Only Unassigned, [place] 350.1.13.10 ity of [place] [facility] 4.2.7.2.686 Vlad as [id number] [facility] [address] 2021-10-04 2021-10-04 Nurse Anika Alegria 1.2.840.114 [id number] Univers 00:00:00 00:00:00 Triage RENO 350.1.13.10 it y of HOSPITAL 4.2.7.2.686 Vlad as [id number] [facility] [address] 2021-10-04 2021-10-04 Telephone Mt [facility] 1.2.453.681 [id number] Univers 00:00:00 00:00:00 Stuart R MATCH MARKER 350.1.13.10 ity of REGIONAL 4.2.7.2.686 Vlad as MATERNAL [id number] [facility] [address] [place] [address] 2021-09-18 2021-09-18 [facility]ine [facility] 1.2.762.207 [id number] Univers 14:45:00 15:27:56 Tr C MATCH MARKER 350.1.13.10 ity of Visit REGIONAL 4.2.7.2.686 Vlad as MATERNAL [id number] [facility] [address] [place] [address] 2021-09-18 2021-09-18 [facility] [id number] Univers 08:00:00 08:00:00 STUART toledo [facility] 2021-08-29 2021-08-29 Hematologist Ultrasound, [facility] 1.2 .840.114 [id number] Univers 09:15:00 09:45:00 Visit Nasim Medrano MATCH MARKER 350.1.13.10 ity of REGIONAL 4.2.7.2.686 Vlad as MATERNAL [id number] [facility] [address] [facility] 2021-08-29 2021-08-29 Outpatient P [facility] [id number] Univers 09:30:00 09:30:00 ity of [facility] 2021-08-29 2021-08-29 Outpatient P NASIM MEDRANO [facility] [id number] Univers 09:15:00 09:15:00 [facility] 2021-08-29 2021-08-29 [facility] 1.2.840.114 [id number] Univers 00:00:00 00:00:00 Stuart R MATCH MARKER 350.1.13.10 ity of REGIONAL 4.2.7.2.686 Vlad as MATERNAL [id number] [facility] [address] [place] [address] 2021-08-22 2021-08-22 Outpatient R MT [facility] [id number] Univers 15:45:00 16:22:58 STUART boyd o f [facility] 2021-08-22 2021-08-22 [facility] 1.2.840.114 [id number] Univers 15:45:00 16:22:58 Roshunda R MATCH MARKER 350.1.13.10 ity of Visit REGIONAL 4.2.7.2.686 Vlad as MATERNAL [id number] [facility] ical & CHILD [address] [place] [address] 2021-08-19 2021-08-19 Outpatient R CESAR [facility] [id number] Univers 15:00:00 16:21:50 CHASENino ity [facility] 2021-08-19 2021-08-19 Office Faculty, Dixon Enriquezpeña [facility] 1.2 .840.114 [id number] Univers 15:00:00 16:21:50 Visit Deanne Guerrero MATCH MARKER 350.1. 13.10 ity of REGIONAL 4.2.7.2.686 Vlad as MATERNAL [phone] [facility] & CHILD [address] [place] [address] 2021-08-12 2021-08-12 Routine [facility] 1.2.840.114 [id number] Univers 17:00:00 17:00:00 Roshunda R MATCH MARKER 350.1.13.10 ity of Visit REGIONAL 4.2.7.2.686 Vlad as MATERNAL [phone] [facility] & CHILD [address] [place] [address] 2021-08-12 2021-08-12 Outpatient R MT [facility] [id number] Univers 17:00:00 10:58:15 ROSHUNDA ity o f [facility] 2021-08-12 2021-08-12 Telephone [facility] 1.2.467.817 [id number] Univers 00:00:00 00:00:00 Roshunda R MATCH MARKER 350.1.13.10 ity of REGIONAL 4.2.7.2.686 Vlad as MATERNAL [id number] [facility] [address] [place] [address] 2021-08-06 2021-08-06 Outpatient R MT [facility] [id number] Univers 14:00:00 14:30:22 ROSCAREYNDA ity o f [facility] 2021-08-06 2021-08-06 [facility] 1.2.840.114 [id number] Univers 14:00:00 14:30:22 Codyjanekristie R MATCH MARKER 350.1.13.10 ity of Visit [facility] 4.2.7.2.686 Vlad as MATERNAL [phone] Med ical & CHILD 107 [facility] 2021-08-06 2021-08-06 Orders Doctor MARGOT 1.2.840.114 [id number] Univers 00:00:00 00:00:00 Only Unassigned, RENO 350.1.13.10 ity of [place] [facility] 4.2.7.2.686 Vlad as [phone] [address] 2021-04-05 2021-04-05 [facility] [id number] Univers 07:45:00 07:45:00 ADITI boyd [facility] 2021-03-26 2021-03-26 [facility] [id number] Univers 07:45:00 07:45:00 ADITI nino [facility] 2021-03-20 2021-03-20 Telephone Melissa [facility] 1.2.840.114 [id number] Univers 00:00:00 00:00:00 Patience Padilla MATCH MARKER 350.1.13.10 ity of REGIONAL 4.2.7.2.686 Vlad as MATERNAL [phone] Med ical & CHILD 110 [facility] 2021-03-18 2021-03-18 [facility] .840.114 [id number] Univers 11:30:58 12:00:58 Visit Cleo Price MATCH MARKER 350.1.13.1 0 ity of REGIONAL 4.2.7.2.686 Vlad as MATERNAL [phone] Med ical & CHILD 369 [facility] 2021-03-18 2021-03-18 Outpatient P DEE [facility] [id number] Univers 11:30:00 11:30:00 CLEO nino [facility] 2021-03-18 2021-03-18 Hematologist Lab, Ang-Rmchp [facility] 1.2.840. 114 [id number] Univers 10:32:49 10:36:09 Visit Patience Torres MATCH MARKER 350.1.13. 10 ity of REGIONAL 4.2.7.2.686 Vlad as MATERNAL [phone] [facility] CHILD [address] [place] [address] 2021-03-18 2021-03-18 Outpatient R [facility] [id number] Univers 10:15:00 10:15:[address] [facility] 2021-03-18 2021-03-18 [facility] [id number] Univers 10:15:00 10:15:[address] [facility] 2021-03-13 2021-03-13 Outpatient [facility] [id number] Univers 12:45:00 12:45:00 ADITI deb [facility] 2021-03-05 2021-03-05 [facility] 1.2.840.114 [id number] Univers 00:00:00 00:00:00 Aditi Pappas MATCH MARKER 350.1.13.10 it y of REGIONAL 4.2.7.2.686 Vlad as MATERNAL [phone] [facility] & [address] 2021-03-04 2021-03-04 Initial [facility] 1.2.883.950 [id number] Univers 09:33:40 11:00:54 Aditi Pappas MATCH MARKER 350.1.13.10 i ty of Visit REGIONAL 4.2.7.2.686 Vlad as MATERNAL [phone] [facility] & [address] 2021-03-04 2021-03-04 Outpatient [facility] [id number] Univers 09:15:00 11:00:54 ADITIBALJEET boyd [facility] 2021-03-04 2021-03-04 Orders Doctor FROST 1.2.840.114 [id number] Univers 00:00:00 00:00:00 Only Unassigned, RNEO 350.1.13.10 ity of [facility] 4.2.7.2.686 Vlad as [phone] [address] 2021-03-01 2021-03-01 Telephone Mt [facility] 1.2.866.815 [id number] Univers 00:00:00 00:00:00 Roscareynda R MATCH MARKER 350.1.13.10 ity of [facility] 4.2.7.2.686 Vlad as MATERNAL [phone] Med ical & CHILD [address] [place] [address] 2020-10-24 2020-10-24 Outpatient R MT [facility] [id number] Univers 14:45:00 14:45:00 CODYNDA ity o [facility] 2020-09-04 2020-09-04 Outpatient R MT [facility] [id number] Univers 11:00:00 11:00:00 HAYDEECAREYNDA ity o [facility] 2020-07-24 2020-07-24 Outpatient R MT [facility] [id number] Univers 09:45:00 09:45:00 CODYNDA ity o [facility] 2020-07-23 2020-07-23 Outpatient Devonte AMOR [facility] [id number] Univers 09:15:00 09:15:00 CODYNDA ity o [facility] 2020-07-19 2020-07-19 Telephone Mt [facility] 1.2.133.508 [id number] Univers 00:00:00 00:00:00 Codynda R MATCH MARKER 350.1.13.10 ity of [facility] 4.2.7.2.686 Vlad as MATERNAL [id number] Med ical & CHILD [address] [place] [address] 2020-07-19 2020-07-19 Telephone Mt [facility] 1.2.415.719 [id number] 00:00:00 00:00:00 Codynda R MATCH MARKER 350.1.13.10 [facility] 4.2.7.2.686 MATERNAL [phone] & CHILD [address] [place] [address] 2020-06-20 2020-06-20 Bailey Barboza [place] 1.2.840.114 [id number] Univers 00:00:00 00:00:00 Aditi Elyse MATCH MARKER 350.1.13.10 it y of [facility] 4.2.7.2.686 Vlad as MATERNAL [phone] Med ical & CHILD [address] [place] [address] 2020-06-20 2020-06-20 [facility]phone [facility] 1.2.840.114 [id number] 00:00:00 00:00:00 Aditi Elyse MATCH MARKER 350.1.13.10 REGIONAL 4.2.7.2.686 MATERNAL [phone] & CHILD [address] [place] [address] 2020-03-06 2020-03-06 Office [facility] 1.2.840.114 [id number] Univers 15:22:53 15:37:53 Visit [facility] Devonte MATCH MARKER 350.1.13.10 ity of [facility] 4.2.7.2.686 Vlad as MATERNAL [phone] [facility] & CHILD [address] [place] [address] 2020-03-06 2020-03-06 [facility] 1.2.840.114 [id number] 15:22:53 15:37:53 [facility] Whitney MATCH MARKER 350.1.13.10 [facility] 4.2.7.2.686 MATERNAL [id number] & CHILD [address] [place] [address] 2020-03-06 2020-03-06 Outpatient [facility] [id number] Univers 15:30:00 15:30:00 STUART toledo [facility] 2020-03-06 2020-03-06 Orders Doctor MARGOT 1.2.840.114 [id number] Univers 00:00:00 00:00:00 Only Unassigned, RENO 350.1.13.10 ity of [place] [facility] 4.2.7.2.686 Vlad as [phone] [address] 2020-02-02 2020-02-02 Outpatient [facility] [id number] Univers 09:30:00 09:30:00 STUART toledo [facility] 2019-12-20 2019-12-20 Outpatient R MOOK [facility] [id number] Univers 14:15:00 14:15:00 BELLA boyd [facility] 2019-11-22 2019-11-22 Office [facility] 1.2.853.445 [id number] Univers 13:19:04 13:45:50 Visit Bella Person 350.1.13.10 i ty [place] [phone] Mt dical nal [address] [place] [address] 2019-11-22 2019-11-22 Outpatient [facility] [id number] Univers 13:15:00 13:15:00 BELLA boyd [facility] 2019-11-15 2019-11-15 Outpatient R [facility] [id number] Univers 13:30:00 13:30:00 BELLA boyd [facility] 2019-11-08 2019-11-08 Office [facility] 1.2.034.129 [id number] Univers 14:10:12 14:25:12 Visit Bella Mendez Lenny 350.1.13.10 i ty [place] [phone] Mt dical nal [address] [place] [address] 2019-11-08 2019-11-08 Outpatient R [facility] [id number] Univers 14:00:00 14:00:00 BELLA boyd [facility] 2019-11-02 2019-11-02 Office [facility] 1.2.840.114 [id number] Univers 08:17:51 09:14:10 Visit Stuart Whitney MATCH MARKER 350.1.13.10 ity [facility] 4.2.7.2.686 Vlad as MATERNAL [phone] Med ical & CHILD [address] [place] [address] 2019-11-02 2019-11-02 Outpatient [facility] [id number] Univers 08:15:00 08:15:00 STUART boyd o f [facility] 2019-11-02 2019-11-02 Orders Doctor FROST 1.2.840.114 [id number] Univers 00:00:00 00:00:00 Only Unassigned, RENO 350.1.13.10 ity of [place] [facility] 4.2.7.2.686 Vlad as [phone] [facility] [address] 2019-11-01 2019-11-01 Office [facility] 1.2.384.774 [id number] Univers 13:05:02 13:21:57 Visit Bella Person 350.1.13.10 i [place] [phone] Mt dical nal 377 [facility] 2019-11-01 2019-11-01 Outpatient R [facility] [id number] Univers 13:00:00 13:00:00 BELLA boyd [facility] 2019-10-28 2019-10-28 Telephone [facility] 1.2.840.114 [id number] Univers 00:00:00 00:00:00 Bella Mendez [facility] 350.1.13.10 i ty of CL[place] [phone] [facility] [address] 2019-10-19 2019-10-21 Hospital Person, Jonathan [place] 1.2.840.11 [id number] Univers 17:04:27 17:45:00 Encounter Bella Delvalle [place] 350.1.13.1 0 ity of Hospital 4.2.7.2.686 Vlad as [phone] [facility] [address] 2019-10-19 2019-10-19 Outpatient [facility] [id number] Univers 11:00:00 11:00:00 STUART brary o f [facility] 2019-10-19 2019-10-19 Routine [facility] 1.2.840.114 [id number] Univers 09:57:10 10:40:45 Codynda R MATCH MARKER 350.1.13.10 ity of Visit REGIONAL 4.2.7.2.686 Vlad as MATERNAL [phone] Med ical & CHILD 107 [facility] 2019-10-18 2019-10-18 [facility]phone [facility] 1.2.217.845 [id number] Univers 00:00:00 00:00:00 Roscareynda R MATCH MARKER 350.1.13.10 ity of REGIONAL 4.2.7.2.686 Vlad as MATERNAL [phone] [facility] ical & CHILD [address] [place] [address] 2019-10-12 2019-10-12 Orders Doctor MARGOT 1.2.840.114 [id number] Univers 00:00:00 00:00:00 Only Unassigned, [place] 350.1.13.10 ity of [place] [facility] 4.2.7.2.686 Vlad as [phone] [address] 2019-10-11 2019-10-11 Routine [facility] 1.2.840.114 [id number] Univers 11:02:39 11:46:46 Haydeecareynda R MATCH MARKER 350.1.13.10 ity of Visit REGIONAL 4.2.7.2.686 Vlad as MATERNAL [id number] [facility] ical & CHILD [address] [place] [address] 2019-10-11 2019-10-11 Outpatient [facility] [id number] Univers 10:45:00 10:45:00 STUART boyd o f [facility] 2019-09-30 2019-09-30 1.2.840.1 1.2.840.114 [id number] Univers 00:00:00 00:00:00 Encounter [id number] 350.1.13.10 ity of 3[place]104.2.[id number] 570 [facility] 2019-09-28 2019-09-28 1.2.840.1 1.2.840.114 [id number] Univers 00:00:00 00:00:00 Encounter 31596.1.1 350.1.13.10 ity of 3[place]104.2[place][id number] 570 [facility] 2019-09-27 2019-09-27 Outpatient [facility] [id number] Univers 08:00:00 08:00:00 STUART boyd o f [facility] 2019-09-22 2019-09-22 Outpatient Peña JOHNSON [facility] MARY [id number] Univers 19:22:00 23:20:00 KOUTROUVELI it y of S, WILL [facility] 2019-09-22 2019-09-22 [facility] Regino FROST 1.2.840.114 [id number] Univers 19:22:00 23:20:00 Encounter Mio BOJORQUEZ 350.1.13.10 ity of s, [place] [id number] [place] [address] [place] 2019-09-19 2019-09-22 [facility] Chloe Power 1.2.840.114 [id number] Univers 00:47:13 13:23:00 Encounter [place] 350.1.13.10 ity [facility] 4.2.7.2.686 Vlad as [phone] [address] 2019-09-22 2019-09-22 [facility]phone [facility] 1.2.302.696 [id number] Univers 00:00:00 00:00:00 Stuart R MATCH MARKER 350.1.13.10 ity of [facility] 4.2.7.2.686 Vlad as MATERNAL [id number] Med ical & CHILD [address] [place] [address] 2019-09-19 2019-09-19 Outpatient Peña CHLOE POWER [facility] MARY [id number] Univers 00:47:13 00:47:13 ity of [facility] 2019-09-13 2019-09-13 Outpatient Devonte [facility] [id number] Univers 10:30:00 10:30:00 STUART brary o f [facility] 2019-09-13 2019-09-13 Telemedici [facility] 1.2.840.114 [id number] Univers 08:41:32 10:27:46 ne Visit Stuart R MATCH MARKER 350.1.13.10 ity [facility] 4.2.7.2.686 Vlad as MATERNAL [phone] [facility] ical & CHILD [address] [place] [address] 2019-08-30 2019-08-30 Outpatient [facility] [id number] Univers 10:45:00 10:45:00 MUKESHA ity o f [facility] 2019-08-30 2019-08-30 Telemedici [facility] 1.2.840.114 [id number] Univers 07:36:13 10:22:14 ne Visit Roshunda R MATCH MARKER 350.1.13.10 ity of REGIONAL 4.2.7.2.686 Vlad as MATERNAL [phone] [facility] & [address] 2019-08-17 2019-08-17 Routine [facility] 1.2.840.114 [id number] Univers 08:11:18 09:56:21 Roshunda R MATCH MARKER 350.1.13.10 ity of Visit REGIONAL 4.2.7.2.686 Vlad as MATERNAL [id number] [address] 2019-08-17 2019-08-17 Outpatient [facility] [id number] Univers 08:15:00 08:15:00 ROSHUNDA ity o f [facility] 2019-08-10 2019-08-10 Telephone [facility] 1.2.940.333 [id number] Univers 00:00:00 00:00:00 Roshunda R MATCH MARKER 350.1.13.10 ity of REGIONAL 4.2.7.2.686 Vlad as MATERNAL [id number] [address] 2019-08-10 2019-08-10 Nurse MARGOT Ervin 1.2.840.114 [id number] Univers 00:00:00 00:00:00 Triage Tammie [place] 350.1.13.10 it y of HOSPITAL 4.2.7.2.686 Vlad as [id number] [address] 2019-08-03 2019-08-03 Telemedici [facility] 1.2.840.114 [id number] Univers 08:14:58 08:28:54 ne Visit Roshunda R MATCH MARKER 350.1.13.10 ity of [facility] 4.2.7.2.686 Vlad as MATERNAL [id number] [facility] & CHILD [address] [place] [address] 2019-08-03 2019-08-03 Outpatient [facility] [id number] Univers 08:00:00 08:00:00 ROSCAREYNDA ity o f [facility] 2019-07-20 2019-07-20 [facility] 1.2.840.114 [id number] Univers 07:54:21 09:38:02 Roshunda R MATCH MARKER 350.1.13.10 ity of Visit REGIONAL 4.2.7.2.686 Vlad as MATERNAL [phone] [facility] ical & CHILD [address] [place] [address] 2019-07-20 2019-07-20 Outpatient [facility] [id number] Univers 08:00:00 08:00:00 ROSCAREYNDA ity o f [facility] 2019-06-27 2019-06-27 Telephone [facility] 1.2.678.878 [id number] Univers 00:00:00 00:00:00 Roscareynda R MATCH MARKER 350.1.13.10 ity of REGIONAL 4.2.7.2.686 Vlad as MATERNAL [phone] [facility] [address] [place] [address] 2019-06-22 2019-06-22 Routine [facility] 1.2.840.114 [id number] Univers 07:59:21 08:48:37 Roshunda R MATCH MARKER 350.1.13.10 ity of Visit REGIONAL 4.2.7.2.686 Vlad as MATERNAL [id number] [facility] & CHILD [address] [place] [address] 2019-06-22 2019-06-22 Outpatient R [facility] [id number] Univers 08:00:00 08:00:00 ROSCAREYNDA ity o f [facility] 2019-06-13 2019-06-13 Abstract [facility] 1.2.840.114 [id number] Univers 00:00:00 00:00:00 Roshunda R MATCH MARKER 350.1.13.10 ity of REGIONAL 4.2.7.2.686 Vlad as MATERNAL [phone] [facility] ical & CHILD [address] [place] [address] Results Test Description Test Time Test Comments Results Result Comments Source MATERNAL HEMO SCREEN 2022-03-19 13:22:46 Test Item Value Reference Range Interpretation Comme nts SCREEN (test code = 846) Negative Performed at [facility] Laboratory Services - [facility] Blood Bank1 [address] [place], [place] [address]Toll Free: [phone] A No. [id number] RHIG REQUIRED? (test code = 1 Syringe Performed at [facility] Laboratory Services - 1747) [facility] Blood Bank[address] [place], [place] [address]Toll Free: [phone] A No. [id number] [facility] FallsCBC with [id number] 11:02:11 Test Item Value Reference Range Interpretation Comments WBC (test code = See_Comment H [Automated 6690-2) message] The sy stem which generated this result transmitted reference range : 4.30 - 11.10 10*3/?L. The reference range was not used to interpret this result as normal/abnormal . RBC (test code = See_Comment L [Automated 789-8) message] The sy stem which generated this result transmitted reference range : 3.93 - 5.25 10*6/?L. The reference range was not used to interpret this result as normal/abnormal . HGB (test code = 9.0 g/dL 11.6-15.0 L 718-7) HCT (test code = 29.6 % 35.7-45.2 L 4544-3) MCV (test code = 78.1 fL 80.6-95.5 L 787-2) MCH (test code = 23.7 pg 25.9-32.8 L 785-6) MCHC (test code = 30.4 g/dL 31.6-35.1 L 786-4) RDW-SD (test code = 40.3 fL 39.0-49.9 39434-6) RDW-CV (test code = 14.3 % 12.0-15.5 788-0) PLT (test code = See_Comment L [Automated 777-3) message] The sy stem which generated this result transmitted reference range : 166 - 358 10*3/ ?L. The reference r carson was not used to interpret this result as normal/abnormal . MPV (test code = 12.2 fL 9.5-12.9 82826-5) NRBC/100 WBC (test See_Comment [Automat ed code = 7096359751) message] The system which generated this result transmitted reference range : 0.0 - 10.0 /100 WBCs. The refer ence range was not u sed to interpret th is result as normal/abnormal . NRBC x10^3 (test code See_Comment [Auto mated = 9404692785) message] The s ystem which generated this result transmitted reference range : 10*3/?L. The reference range was not used to interpret this result as normal/abnormal . GRAN MAT (NEUT) % 69.7 % (test code = 770-8) IMM GRAN % (test code 0.70 % = 0734380478) LYMPH % (test code = 20.8 % 736-9) MONO % (test code = 7.7 % 5905-5) EOS % (test code = 0.6 % 713-8) BASO % (test code = 0.5 % 706-2) GRAN MAT x10^3(ANC) 9.04 10*3/uL 1.88-7.09 H (test code = 9819468253) IMM GRAN x10^3 (test 0.09 10*3/uL 0.00-0.06 H code = 5783035423) LYMPH x10^3 (test code 2.70 10*3/uL 1.32-3.29 = 731-0) MONO x10^3 (test code 1.00 10*3/uL 0.33-0.92 H = 742-7) EOS x10^3 (test code = 0.08 10*3/uL 0.03-0.39 711-2) BASO x10^3 (test code 0.07 10*3/uL 0.01-0.07 = 704-7) Lab Interpretation Abnormal (test code = 90552-6) [facility] OR YURI ONLY - [id number] 09:54:35 Test Item Value Reference Range Interpretation Comments RPR (Qualitative) (test code = Nonreactive Nonreactive 28524-8) Lab Interpretation (test code = Normal 08012-6) [facility] FallsRHO (D) IMMUNE [id number] 02:19:26 Test Item Value Reference Range Interpretation Comments RHIG CANDIDATE? (test Yes- see A Patien t is a code = 5055) comment candidate for RhIg- Patient i s Rh Negative and baby is Rh Positive.Perfor me d at [facility] Laboratory Services - [facility] Blood [address] [place] [id number] Free: [phone] A No. [id number] Lab Interpretation Abnormal (test code = 02606-9) [facility] FallsANTI-D R/O [id number] 22:14:27 Test Item Value Reference Range Interpretation Comments ANTIBODY (test Anti-D Probable RhIg recei boris on code = 683) RhIg 01/23/22 per EPI C. Antibody of Undetermined Specificity not showing at this time.Performed at [facility] Laboratory Services [facility] Blood [address] [place] [id number] Free: [phone] A No. [id number] [facility] FallsHepatitis B Surface [id number] 17:03:37 Test Item Value Reference Range Interpretation Comments HBsAg Semi-Quantitative (test code = Negative Negative 5195-3) [facility] FallsType and Screen - ONCE [id number] 16:03:51 Test Item Value Reference Range Interpretation Comments ABO & RH (test code O Negative Performe d at [facility] = 20) Laboratory Serv [facility] - [facility] Blood Bank1 [address] [place], [place] [address]Afnk Free: [phone] A No. [id number] IAT (test code = Positive Critical ca lled to 118Myra) Vein Cam Wynne at 0830 03-18-22/cn.Per formed at [facility] Laboratory Services - [facility] Blood Ban [address] [place], [place] [address]Tpdv Free: [phone] A No. [id number] [facility] FallsHIV 1/2 AG-AB WITH [id number] 14:45:56 Test Item Value Reference Range Interpretation Comments HIV Negative Negative Semi-quantitative (test code = 90946-4) LEIGHANN (test code = Non-reactive for HIV-1 LEIGHANN) antigen and HIV-1/HIV-2 antibodies. ?No laboratory evidence of HIV infection. ?Repeat in 2-4 weeks if acute HIV infection is suspected. [facility] with [id number] 13:44:33 Test Item Value Reference Range Interpretation Comments WBC (test code = See_Comment H [Automated 6690-2) message] The sy stem which generated this result transmitted reference range : 4.30 - 11.10 10*3/?L. The reference range was not used to interpret this result as normal/abnormal . RBC (test code = See_Comment [Automated 789-8) message] The sy stem which generated this result transmitted reference range : 3.93 - 5.25 10*6/?L. The reference range was not used to interpret this result as normal/abnormal . HGB (test code = 10.0 g/dL 11.6-15.0 L 718-7) HCT (test code = 32.0 % 35.7-45.2 L 4544-3) MCV (test code = 76.9 fL 80.6-95.5 L 787-2) MCH (test code = 24.0 pg 25.9-32.8 L 785-6) MCHC (test code = 31.3 g/dL 31.6-35.1 L 786-4) RDW-SD (test code = 39.6 fL 39.0-49.9 72005-0) RDW-CV (test code = 14.3 % 12.0-15.5 788-0) PLT (test code = See_Comment [Automated 777-3) message] The sy stem which generated this result transmitted reference range : 166 - 358 10*3/ ?L. The reference r carson was not used to interpret this result as normal/abnormal . MPV (test code = 12.2 fL 9.5-12.9 53173-9) NRBC/100 WBC (test See_Comment [Automat ed code = 8162972900) message] The system which generated this result transmitted reference range : 0.0 - 10.0 /100 WBCs. The refer ence range was not u sed to interpret th is result as normal/abnormal . NRBC x10^3 (test code See_Comment [Auto mated = 1903339410) message] The s ystem which generated this result transmitted reference range : 10*3/?L. The reference range was not used to interpret this result as normal/abnormal . GRAN MAT (NEUT) % 73.9 % (test code = 770-8) IMM GRAN % (test code 0.90 % = 3821179399) LYMPH % (test code = 16.3 % 736-9) MONO % (test code = 7.8 % 5905-5) EOS % (test code = 0.7 % 713-8) BASO % (test code = 0.4 % 706-2) GRAN MAT x10^3(ANC) 9.04 10*3/uL 1.88-7.09 H (test code = 3912371263) IMM GRAN x10^3 (test 0.11 10*3/uL 0.00-0.06 H code = 4247385500) LYMPH x10^3 (test code 1.99 10*3/uL 1.32-3.29 = 731-0) MONO x10^3 (test code 0.95 10*3/uL 0.33-0.92 H = 742-7) EOS x10^3 (test code = 0.09 10*3/uL 0.03-0.39 711-2) BASO x10^3 (test code 0.05 10*3/uL 0.01-0.07 = 704-7) Lab Interpretation Abnormal (test code = 88855-1) [facility] WITH [id number] 06:23:46 Test Item Value Reference Range Interpretation Comments WBC (test code = See_Comment [Automated 7682-2) message] The sy stem which generated this result transmitted reference range : 4.30 - 11.10 10*3/?L. The reference range was not used to interpret this result as normal/abnormal . RBC (test code = See_Comment [Automated 174-8) message] The sy stem which generated this result transmitted reference range : 3.93 - 5.25 10*6/?L. The reference range was not used to interpret this result as normal/abnormal . HGB (test code = 10.1 g/dL 11.6-15.0 L 718-7) HCT (test code = 33.3 % 35.7-45.2 L 4544-3) MCV (test code = 78.0 fL 80.6-95.5 L 787-2) MCH (test code = 23.7 pg 25.9-32.8 L 785-6) MCHC (test code = 30.3 g/dL 31.6-35.1 L 786-4) RDW-SD (test code = 40.2 fL 39.0-49.9 20450-5) RDW-CV (test code = 14.4 % 12.0-15.5 788-0) PLT (test code = See_Comment [Automated 777-3) message] The sy stem which generated this result transmitted reference range : 166 - 358 10*3/ ?L. The reference r carson was not used to interpret this result as normal/abnormal . MPV (test code = 13.1 fL 9.5-12.9 H 82839-0) IPF % (test code = 12.0 % 1.3-7.7 H Platelet count [id number]) measured by fluorescence method. NRBC/100 WBC (test See_Comment [Automat ed code = [id number]) message] The system which generated this result transmitted reference range : 0.0 - 10.0 /100 WBCs. The refer ence range was not u sed to interpret th is result as normal/abnormal . NRBC x10^3 (test code See_Comment [Auto mated = [id number]) message] The s ystem which generated this result transmitted reference range : 10*3/?L. The reference range was not used to interpret this result as normal/abnormal . GRAN MAT (NEUT) % 71.9 % (test code = 770-8) IMM GRAN % (test code 0.80 % = [id number]) LYMPH % (test code = 17.5 % 736-9) MONO % (test code = 8.7 % 5905-5) EOS % (test code = 0.9 % 713-8) BASO % (test code = 0.2 % 706-2) GRAN MAT x10^3(ANC) 6.57 10*3/uL 1.88-7.09 (test code = [id number]) IMM GRAN x10^3 (test 0.07 10*3/uL 0.00-0.06 H code = [id number]) LYMPH x10^3 (test code 1.60 10*3/uL 1.32-3.29 = 731-0) MONO x10^3 (test code 0.79 10*3/uL 0.33-0.92 = 742-7) EOS x10^3 (test code = 0.08 10*3/uL 0.03-0.39 711-2) BASO x10^3 (test code 0.01-0.07 = 704-7) Lab Interpretation Abnormal (test code = 50208-2) [facility] [id number] 21:43:00 Test Item Value Reference Range Interpretation Comments POCT U SP GRAV (test code = 3255) . 1.005-1.025 POCT PH U (test code = 3254) . 5-8 POCT U LEUK EST (test code = 3263) . Negative - Negative POCT U NIT (test code = 3262) . Negative - Negative POCT U PROT (test code = 3259) trace Negative - Negative POCT U GLU (test code = 3256) normal Negative - Negative POCT U KETONE (test code = 3258) . Negative - Negative POCT U UROBILI (test code = 3260) . 0.2-1 POCT U BILI (test code = 3261) . Negative - Negative POCT U BLD (test code = 3257) . Negative - Negative POCT U COLOR (test code = 3266) yellow POCT U APPEAR (test code = 3267) clear [facility] and Screen - ONCE [id number] 19:36:31 Test Item Value Reference Range Interpretation Comments ABO & RH (test code O Negative Performe d at [facility] = 20) Laboratory Serv [facility] Blood Bank1 [address] [place], [place] [id number] Free: [phone] A No. [id number] IAT (test code = Positive Performed a t [facility] 1185) Laboratory [facility] Blood Bank1 [address] [place], [place] [id number] Free: [phone] A No. [id number] [facility] FallsCBC WITH [id number] 17:50:16 Test Item Value Reference Range Interpretation Comments WBC (test code = See_Comment [Automated 6690-2) message] The sy stem which generated this result transmitted reference range : 4.30 - 11.10 10*3/?L. The reference range was not used to interpret this result as normal/abnormal . RBC (test code = See_Comment L [Automated 789-8) message] The sy stem which generated this result transmitted reference range : 3.93 - 5.25 10*6/?L. The reference range was not used to interpret this result as normal/abnormal . HGB (test code = 9.6 g/dL 11.6-15.0 L 718-7) HCT (test code = 30.0 % 35.7-45.2 L 4544-3) MCV (test code = 78.5 fL 80.6-95.5 L 787-2) MCH (test code = 25.1 pg 25.9-32.8 L 785-6) MCHC (test code = 32.0 g/dL 31.6-35.1 786-4) RDW-SD (test code = 39.5 fL 39.0-49.9 94408-7) RDW-CV (test code = 13.9 % 12.0-15.5 788-0) PLT (test code = See_Comment L [Automated 777-3) message] The sy stem which generated this result transmitted reference range : 166 - 358 10*3/ ?L. The reference r carson was not used to interpret this result as normal/abnormal . MPV (test code = 11.6 fL 9.5-12.9 92625-8) NRBC/100 WBC (test See_Comment [Automat ed code = [id number]) message] The system which generated this result transmitted reference range : 0.0 - 10.0 /100 WBCs. The refer ence range was not u sed to interpret th is result as normal/abnormal . NRBC x10^3 (test code See_Comment [Auto mated = [id number]) message] The s ystem which generated this result transmitted reference range : 10*3/?L. The reference range was not used to interpret this result as normal/abnormal . GRAN MAT (NEUT) % 70.9 % (test code = 770-8) IMM GRAN % (test code 1.50 % = [id number]) LYMPH % (test code = 18.1 % 736-9) MONO % (test code = 8.2 % 5905-5) EOS % (test code = 0.9 % 713-8) BASO % (test code = 0.4 % 706-2) GRAN MAT x10^3(ANC) 6.46 10*3/uL 1.88-7.09 (test code = 0324062445) IMM GRAN x10^3 (test 0.14 10*3/uL 0.00-0.06 H code = 6421434295) LYMPH x10^3 (test code 1.65 10*3/uL 1.32-3.29 = 731-0) MONO x10^3 (test code 0.75 10*3/uL 0.33-0.92 = 742-7) EOS x10^3 (test code = 0.08 10*3/uL 0.03-0.39 711-2) BASO x10^3 (test code 0.04 10*3/uL 0.01-0.07 = 704-7) Lab Interpretation Abnormal (test code = 60670-6) [facility] URINALYSIS W SPECIFIC [id number] 13:55:00 Test Item Value Reference Range Interpretation Comments POCT U SP GRAV (test code = * 1.005-1.025 A 3255) POCT PH U (test code = 3254) 7 mg/dl 5-8 POCT U LEUK EST (test code = negative Negative - Negative 3263) POCT U NIT (test code = 3262) negative Negative - Negative POCT U PROT (test code = 3259) trace Negative - Negative POCT U GLU (test code = 3256) negative Negative - Negative POCT U KETONE (test code = 3258) negative Negative - Negative POCT U UROBILI (test code = * 0.2-1 3260) POCT U BILI (test code = 3261) * Negative - Negative POCT U BLD (test code = 3257) negative Negative - Negative POCT U COLOR (test code = 3266) POCT U APPEAR (test code = 3267) Lab Interpretation (test code = Abnormal 33499-1) [facility] FallsPrenatal Workup, Blood [id number] 07:14:07 Test Item Value Reference Range Interpretation Comments ABO & RH (test code O NEGATIVE Performe d at [facility] = 20) Laboratory Serv [facility] Blood Bank3 [facility] s [id number] Free: [phone] A No. [id number] IAT (test code = Negative Performed a t [facility] 1185) Laboratory Serv [facility] Blood Bank3 [facility] s [id number] Free: [phone] A No. [id number] [facility] FallsHIV 1/2 AG-AB WITH [id number] 05:28:32 Test Item Value Reference Range Interpretation Comments HIV Negative Negative Semi-quantitative (test code = 28743-1) LEIGHANN (test code = Non-reactive for HIV-1 LEIGHANN) antigen and HIV-1/HIV-2 antibodies. ?No laboratory evidence of HIV infection. ?Repeat in 2-4 weeks if acute HIV infection is suspected. [facility]PO[facility] URINALYSIS W SPECIFIC [id number] 21:13:00 Test Item Value Reference Range Interpretation Comments POCT U SP GRAV (test code = * 1.005-1.025 A 3255) POCT PH U (test code = 3254) * 5-8 POCT U LEUK EST (test code = * Negative - Negative 3263) POCT U NIT (test code = 3262) * Negative - Negative POCT U PROT (test code = 3259) trace Negative - Negative POCT U GLU (test code = 3256) negative Negative - Negative POCT U KETONE (test code = 3258) * Negative - Negative POCT U UROBILI (test code = * 0.2-1 3260) POCT U BILI (test code = 3261) * Negative - Negative POCT U BLD (test code = 3257) * Negative - Negative POCT U COLOR (test code = 3266) * POCT U APPEAR (test code = 3267) * Lab Interpretation (test code = Abnormal 07235-7) [facility]
--- NOTE | 2022-04-22 18:22 | RAD REPORT ---
EXAM DESCRIPTION: US - Extremity Venous Uni Ltd - 04/22/2022 6:10 pm CLINICAL HISTORY: Pain COMPARISON: None. TECHNIQUE: Real-time sonographic evaluation of the right upper extremity deep venous system was perf ormed. FINDINGS: Normal compressibility, flow augmentation, phasic flow and spontaneous flow is identified in the right upper extremity deep venous system. No intraluminal filling defects seen. IMPRESSION: No DVT in the right upper extremity.
--- NOTE | 2022-04-22 18:29 | RAD REPORT ---
EXAM DESCRIPTION: US - Extremity Nonvascular Limited - 04/22/2022 6:10 pm CLINICAL HISTORY: SWELLING COMPARISON: No comparisons FINDINGS: Focused ultrasound of the right axilla at the patient's site of pain. Heterogeneous collection in the right axilla measuring 1.8 x 1.7 x 1.6 cm at the patient's palpable a bnormality. This is just deep to the skin surface within the subcutaneous fat. IMPRESSION: Subcutaneous fluid collection in the right axilla concerning for abscess.
[2022-04-22] MEDS ORDERED: ACETAMINOPHEN 325 MG TABLET ONE (18:32)
[2022-04-22 18:44] LABS: Urine Blood 2+ (Negative); Urine Glucose Negative (Negative); Urine Protein Trace (Negative)
[2022-04-22] MEDS ORDERED: IBUPROFEN 200 MG TAB PO ONE (19:38)
[2022-04-22] MEDS ORDERED: HYDROCODONE/APAP 5/325 MG TAB ONE (19:38)
[2022-04-22] MEDS ORDERED: BUPIVACAINE 0.5% PF 10 ML VIAL ONE (19:38)
[2022-04-22] MEDS ORDERED: LIDOCAINE 1% MPF 30 ML VIAL ONE (19:39)
[2022-04-22] MEDS ORDERED: IBUPROFEN 400 MG TAB ONE (19:39)
[2022-04-22] MEDS ORDERED: FENTANYL CITR 100 MCG/2 ML ONE (19:49)
[2022-04-22] MEDS ORDERED: CLINDAMYCIN 600MG/D5W 50 ML IV ONE (19:49)
[2022-04-22 20:15] LABS: Absolute Lymphocytes (CBC) 2.1 K/uL (0.7-4.9); Hematocrit 38.5 % (36.0-45.0); Lymphocytes % 20.2 % (15.3-44.8); MCV 72.1 fL (80-100); MPV 8.7 fL (7.6-11.3); RBC Red Blood Cell Count 5.34 M/uL (3.86-4.86)
--- NOTE | 2022-04-22 20:32 | ER ---
Nurse's Notes [facility] Name: Emily Mesa Age: 21 yrs Sex: Female : 2000 Arrival Date: 04/22/2022 Time: 16:29 Bed Treatment Private MD: Diagnosis: Cutaneous abscess of right axilla-right upper arm Presentation: 04/22 17:23 Chief complaint: Patient states: Abscess armpit area for 2 days. No drainage or fever. ll1 Coronavirus screen: Vaccine status: Patient reports being unvaccinated. Client denies travel out of the [place] in the last 14 days. At this time, the client does not indicate any symptoms associated with coronavirus-19. Ebola Screen: Patient denies travel to an Ebola-affected area in the 21 days before illness onset. Initial Sepsis Screen: Does the patient meet any 2 criteria? No. Patient's initial sepsis screen is negative. Does the patient have a suspected source of infection? Yes: Skin breakdown/wound. Risk Assessment: Do you want to hurt yourself or someone else? Patient reports no desire to harm self or others. Onset of symptoms was April 20, 2022. 17:23 Method Of Arrival: Ambulatory ll1 17:23 Acuity: NAV 4 ll1 Triage Assessment: 17:25 General: Appears in no apparent distress. Behavior is calm, cooperative, appropriate ll1 for age. Pain: Complains of pain in R armpit Pain currently is 8 out of 10 on a pain scale. Quality of pain is described as aching. Derm: Abscess located on R armpit. Historical: - Allergies: 17:24 Codeine; ll1 - PMHx: 17:24 None; ll1 - PSHx: 17:24 Breast sx; ll1 - Immunization history:: Client reports receiving the 2nd dose of the Covid vaccine. - Social history:: Smoking status: Reported history of juuling and/or vaping. Patient denies any tobacco usage or history of. Patient uses. Screenin:33 [facility] ED Fall Risk Assessment (Adult) History of falling in the last 3 months, em6 including since admission No falls in past 3 months (0 pts) Confusion or Disorientation No (0 pts) Intoxicated or Sedated No (0 pts) Impaired Gait No (0 pts) Mobility Assist Device Used No (0 pt) Altered Elimination No (0 pt) Score/Fall Risk Level 0 - 2 = Low Risk Oriented to surroundings, Maintained a safe environment, Educated pt \T\ family on fall prevention, incl call for assistance when getting out of bed, Assessed \T\ reinforced patient's understanding of fall precautions, Provided non-skid footwear, Hourly rounding (assess needs \T\ fall precautionary measures) done, Used ambulatory aids as needed (educated on \T\ assisted with), Used gait belt as appropriate. Abuse screen: Denies threats or abuse. Nutritional screening: No deficits noted. Tuberculosis screening: No symptoms or risk factors identified. Assessment: 18:32 General: Appears in no apparent distress. Behavior is cooperative. Pain: Complains of em6 pain in right arm Pain does not radiate. Pain currently is 4 out of 10 on a pain scale. Neuro: Level of Consciousness is awake, alert, obeys commands, Oriented to person, place, time, situation. Cardiovascular: Patient's skin is warm and dry. Respiratory: Airway is patent Respiratory effort is even, unlabored, Respiratory pattern is regular, symmetrical. GI: No signs and/or symptoms were reported involving the gastrointestinal system. : No signs and/or symptoms were reported regarding the genitourinary system. EENT: No signs and/or symptoms were reported regarding the EENT system. Derm: Reports abscess in the left armpit. Musculoskeletal: Circulation, motion, and sensation intact. Range of motion: intact in all extremities. 19:33 General: Behavior is calm, cooperative, appropriate for age. tw5 19:59 General: asked provider if he wanted blood cultures drawn, answer was no. tw5 21:08 Reassessment: Patient states feeling better. Patient states symptoms have improved. tw5 21:14 Reassessment: Patient states feeling better. Patient states symptoms have improved. tw5 Pain: Pain currently is 2 out of 10 on a pain scale. Vital Signs: 17:23 BP 115 / 81; Pulse 81; Resp 16; Temp 98.5; Pulse Ox 99% ; Weight 54.43 kg; Height 5 ft. ll1 5 in. (165.10 cm); Pain 8/10; 18:56 BP 115 / 70; Pulse 93; Resp 16; Pulse Ox 100% on R/A; em6 19:33 BP 115 / 78; Pulse 87; Resp 18; Pulse Ox 100% on R/A; tw5 21:14 Pulse 90; Resp 18; Temp 98.2(O); Pulse Ox 100% on R/A; tw5 17:23 Body Mass Index 19.97 (54.43 kg, 165.10 cm) ll1 ED Course: 16:29 Patient arrived in ED. as 16:33 Marko Alicia PA is PHCP. cp 16:33 Marko Sadler MD is Attending Physician. cp 17:23 Arm band placed on. ll1 17:24 Triage completed. ll1 18:12 US Extremity Venous Unilateral Ltd In Process Unspecified. EDMS 18:12 US Extrmty Nonvasular Limited: right axilla swelling In Process Unspecified. EDMS 18:28 Gayathri Londono, RN is Primary Nurse. em6 18:33 Placed in gown. Bed in low position. Call light in reach. Side rails up X 1. Pulse ox em6 on. NIBP on. Warm blanket given. 19:29 Primary Nurse role handed off by Gayathri Londono, RN tw5 19:29 Armida Wilks is Primary Nurse. tw5 19:33 Urine --Ancillary (enter results) Sent. tw5 19:41 Assist provider with I \T\ D: of an abscess on right axilla Set up I\T\D tray. Performed by tw 5 Marko PEREZ. 20:03 CBC with Diff Sent. tw5 20:03 CMP Sent. tw5 20:04 Initial lab(s) drawn, by pr, sent to lab. Inserted saline lock: 20 gauge in left tw5 antecubital area, using aseptic technique. Blood collected. 20:31 Kody Hirsch MD is Referral Physician. cp 21:14 IV discontinued, intact, bleeding controlled, No redness/swelling at site. Pressure tw5 dressing applied. Administered Medications: 18:31 Drug: Tylenol 650 mg Route: PO; em6 19:38 Follow up: Response: No adverse reaction tw5 19:40 Drug: HYDROcodone-acetaminophen 5 mg-325 mg 1 tabs Route: PO; tw5 21:16 Follow up: Response: No adverse reaction; RASS: Alert and Calm (0) tw5 19:40 Drug: Ibuprofen 600 mg Route: PO; tw5 21:16 Follow up: Response: No adverse reaction tw5 19:40 Drug: Lidocaine-Epinephrine -1%: (1:100,000) 10 ml {Note: Administered by provider at tw5 the bedside.} Volume: 20 ml; Route: Infiltration; 19:40 Drug: Marcaine (bupivacaine) (0.5 %) 10 ml {Note: administered at the bedside by tw5 Provider.} Volume: 10 ml; Route: Infiltration; 20:03 Drug: Clindamycin 600 mg Route: IVPB; Infused Over: 30 mins; Site: left antecubital; tw5 21:17 Follow up: Response: No adverse reaction; IV Status: Completed infusion; IV Intake: 24ihzf5 20:03 Drug: fentaNYL (PF) 25 mcg Route: IVP; Site: left antecubital; tw5 21:16 Follow up: Response: No adverse reaction; RASS: Alert and Calm (0) tw5 21:08 Drug: Bactrim (trimethoprim-sulfamethoxazole) (160 mg-800 mg (DS) 1 tablet Route: PO; tw5 21:16 Follow up: Response: No adverse reaction tw Medication: 18:33 VIS not applicable for this client. em6 Intake: 21:17 IV: 50ml; Total: 50ml. tw5 Outcome: 20:31 Discharge ordered by MD. cp 21:14 Discharged to home ambulatory, with family. tw 21:14 Condition: improved 21:14 Discharge instructions given to patient, Instructed on discharge instructions, follow up and referral plans. medication usage, wound care, Demonstrated understanding of instructions, follow-up care, medications, wound care, Prescriptions given X 3. 21:17 Patient left the ED. Signatures: Dispatcher [employer] Mindy Mejia Corey, PA PA cp Lewis, Lynsay, RN RN ll1 Armida Wilks tw5 Gayathri Londono RN RN em6
--- NOTE | 2022-04-22 20:32 | EDPHYS ---
Physician Documentation [facility] Name: Emily Mesa Age: 21 yrs Sex: Female : 2000 Arrival Date: 04/22/2022 Time: 16:29 Bed Treatment Private MD: AC Physician Marko Sadler HPI: 04/22 19:00 This 21 yrs old Female presents to ER via Ambulatory with complaints of Arm Pain. cp 19:00 The patient or guardian complains of pain, that is acute, swelling, tenderness. The cp complaints affect the right axilla. Context: resulted from unknown cause. Onset: The symptoms/episode began/occurred 2 day(s) ago. Treatment prior to arrival includes: no previous treatment. Associated signs and symptoms: Pertinent positives: swelling, warmth, Pertinent negatives: fever. Historical: - Allergies: 17:24 Codeine; ll1 - PMHx: 17:24 None; ll1 - PSHx: 17:24 Breast sx; ll1 - Immunization history:: Client reports receiving the 2nd dose of the Covid vaccine. - Social history:: Smoking status: Reported history of juuling and/or vaping. Patient denies any tobacco usage or history of. Patient uses. ROS: 19:05 Constitutional: Negative for body aches, chills, fever, poor PO intake. cp 19:05 Eyes: Negative for injury, pain, redness, and discharge. cp 19:05 ENT: Negative for drainage from ear(s), ear pain, sore throat, difficulty swallowing, difficulty handling secretions. 19:05 Cardiovascular: Negative for chest pain. 19:05 Respiratory: Negative for cough, shortness of breath, wheezing. 19:05 Abdomen/GI: Negative for abdominal pain, nausea, vomiting, and diarrhea. 19:05 Skin: Positive for erythema, swelling, of the right axilla. 19:05 All other systems are negative. Exam: 19:10 Constitutional: The patient appears in no acute distress, alert, awake, non-toxic, well cp developed, well nourished, uncomfortable. 19:10 Head/Face: Normocephalic, atraumatic. cp 19:10 Eyes: Periorbital structures: appear normal, Conjunctiva: normal, no exudate, no injection, Sclera: no appreciated abnormality, Lids and lashes: appear normal, bilaterally. 19:10 ENT: External ear(s): are unremarkable, Nose: is normal, Mouth: is normal, Posterior pharynx: Airway: no evidence of obstruction, patent. 19:10 Neck: ROM/movement: is normal, is supple, without pain, no range of motions limitations. 19:10 Chest/axilla: Axilla: abscess, that is moderate in size, of the right axilla, with surrounding erythema, with tenderness. 19:10 Cardiovascular: Rate: normal, Rhythm: regular. 19:10 Respiratory: the patient does not display signs of respiratory distress, Respirations: normal, no use of accessory muscles, no retractions, labored breathing, is not present, Breath sounds: are clear throughout, no decreased breath sounds, no stridor, no wheezing. 19:10 Abdomen/GI: Exam negative for discomfort, distension, guarding, Inspection: abdomen appears normal. 19:10 Musculoskeletal/extremity: ROM: limited active range of motion due to pain, in the right arm, Pulses: noted to be 2+ in the right radial artery. 19:10 Neuro: Orientation: is normal, Mentation: is normal, Motor: moves all fours, strength is normal, Sensation: is normal. Vital Signs: 17:23 BP 115 / 81; Pulse 81; Resp 16; Temp 98.5; Pulse Ox 99% ; Weight 54.43 kg; Height 5 ft. ll1 5 in. (165.10 cm); Pain 8/10; 18:56 BP 115 / 70; Pulse 93; Resp 16; Pulse Ox 100% on R/A; em6 19:33 BP 115 / 78; Pulse 87; Resp 18; Pulse Ox 100% on R/A; tw5 21:14 Pulse 90; Resp 18; Temp 98.2(O); Pulse Ox 100% on R/A; tw5 17:23 Body Mass Index 19.97 (54.43 kg, 165.10 cm) ll1 Procedures: 20:30 I \T\ D: Incision and drainage was performed for an abscess of the right axilla. Prepped cp with Betadine, Anesthetized with 6 ccs of mixture 1% lidocaine w/o epi and 0.5% marcaine. Incised with #11 blade. Drained moderate amount purulent fluid. bloody fluid. Packed with iodoform gauze, Dressing: sterile 4x4 gauze, the patient tolerated the procedure well. MDM: 18:20 Patient medically screened. susannah 19:00 Differential diagnosis: DVT, cellulitis, abscess. cp 20:30 Data reviewed: vital signs, nurses notes, lab test result(s), radiologic studies, cp ultrasound. 20:30 Counseling: I had a detailed discussion with the patient and/or guardian regarding: the cp historical points, exam findings, and any diagnostic results supporting the discharge/admit diagnosis, lab results, radiology results, the need for outpatient follow up, a general surgeon, to return to the emergency department if symptoms worsen or persist or if there are any questions or concerns that arise at home. Response to treatment: the patient's symptoms have markedly improved after treatment, and as a result, I will discharge patient. ED course: VSS. Pain improved with meds. Patient appears non-toxic. Will discharge to home for continued monitoring. 04/22 18:44 Order name: Urine Dipstick-Ancillary; Complete Time: 18:51 EDMS 04/22 18:49 Order name: Urine --Ancillary (enter results); Complete Time: 20:30 ss 04/22 17:26 Order name: US Extremity Venous Unilateral Ltd; Complete Time: 18:51 cp 04/22 17:26 Order name: US Extrmty Nonvasular Limited: right axilla swelling; Complete Time: 18:51 cp 04/22 19:44 Order name: CBC with Diff; Complete Time: 20:30 tw5 04/22 19:44 Order name: CMP tw5 04/22 17:26 Order name: Urine Dipstick-Ancillary (obtain specimen); Complete Time: 18:43 cp 04/22 17:26 Order name: Urine Test (obtain specimen); Complete Time: 18:43 cp 04/22 18:51 Order name: I\T\D Setup; Complete Time: 19:33 cp 04/22 19:42 Order name: IV; Complete Time: 19:59 tw5 04/22 19:44 Order name: Labs collected and sent; Complete Time: 19:59 tw5 Administered Medications: 18:31 Drug: Tylenol 650 mg Route: PO; em6 19:38 Follow up: Response: No adverse reaction tw5 19:40 Drug: HYDROcodone-acetaminophen 5 mg-325 mg 1 tabs Route: PO; tw5 21:16 Follow up: Response: No adverse reaction; RASS: Alert and Calm (0) tw5 19:40 Drug: Ibuprofen 600 mg Route: PO; tw 21:16 Follow up: Response: No adverse reaction tw5 19:40 Drug: Lidocaine-Epinephrine -1%: (1:100,000) 10 ml {Note: Administered by provider at tw5 the bedside.} Volume: 20 ml; Route: Infiltration; 19:40 Drug: Marcaine (bupivacaine) (0.5 %) 10 ml {Note: administered at the bedside by tw5 Provider.} Volume: 10 ml; Route: Infiltration; 20:03 Drug: Clindamycin 600 mg Route: IVPB; Infused Over: 30 mins; Site: left antecubital; tw5 21:17 Follow up: Response: No adverse reaction; IV Status: Completed infusion; IV Intake: 44mneh3 20:03 Drug: fentaNYL (PF) 25 mcg Route: IVP; Site: left antecubital; tw5 21:16 Follow up: Response: No adverse reaction; RASS: Alert and Calm (0) tw5 21:08 Drug: Bactrim (trimethoprim-sulfamethoxazole) (160 mg-800 mg (DS) 1 tablet Route: PO; tw 21:16 Follow up: Response: No adverse reaction tw5 Disposition Summary: 04/22/22 20:31 Discharge Ordered Location: Home cp Problem: new cp Symptoms: have improved cp Condition: Stable cp Diagnosis - Cutaneous abscess of right axilla - right upper arm cp Followup: cp - With: Kody Hirsch MD - When: 1 - 2 days - Reason: Wound Recheck Discharge Instructions: - Discharge Summary Sheet cp - Skin Abscess cp - Incision and Drainage cp - Incision and Drainage, Care After cp Forms: - Medication Reconciliation Form cp - Thank You Letter cp - Antibiotic Education cp - Prescription Opioid Use cp Prescriptions: - Clindamycin HCl 300 mg Oral Capsule - take 1 capsule by ORAL route every 6 hours for 10 days; 40 capsule; Refills: 0, cp Product Selection Permitted - Naprosyn 500 mg Oral Tablet - take 1 tablet by ORAL route 2 times per day take with food; 20 tablet; Refills: cp 0, Product Selection Permitted - Bactrim DS 800-160 mg Oral Tablet - take 1 tablet by ORAL route every 12 hours for 10 days; 20 tablet; Refills: 0, cp Product Selection Permitted Signatures: Dispatcher [employer] EDMarko Kim MD MD cha Page, Corey, PA PA cp Lewis, Lynsay RN RN ll1 Armida Wilks 5 Gayathri Londono RN RN em6 Corrections: (The following items were deleted from the chart) 04/23 15:51 15:49 This 21 yrs old Female presents to ER via Ambulatory with complaints of Arm Pain. cp cp
[2022-04-22 20:33] LABS: Albumin 3.3 g/dL (3.4-5.0); Bilirubin Total 0.5 mg/dL (0.2-1.0); Potassium 3.6 mmol/L (3.5-5.1); Protein, Total 8.2 g/dL (6.4-8.2)
[2022-04-22] MEDS ORDERED: SMZ./TMP. 800/160 MG TABLET ONE (21:09)
[2022-04-22 21:34] VITALS: O2SAT 100
[2022-04-22 21:40] VITALS: BP 115/78
[2022-04-22 21:45] VITALS: TEMP 98.2
== END 2022-04-22 21:17 | disposition home or self-care (01) ==
LOC: ER 16:26
PROC: 0H9BXZZ Drainage of Right Upper Arm Skin, External Approach (ICD-10-PCS; principal; 2022-04-22)
DX: L02.411 Cutaneous abscess of right axilla (principal); Z88.5 Allergy status to narcotic agent
CPT/HCPCS: 85025; 36415; 81025; 81003; 80053; 93971; 76882; 10060; J2001; J3010; 96365; 96375; 99284